=== PATIENT | male | born 1945 | race Hispanic/Latino ===

== ENCOUNTER 2016-08-07 22:04 | Inpatient (IN) | payer MEDICARE ==
[2016-08-07 22:18] VITALS: BMI 27.5
--- NOTE | 2016-08-07 22:35 | ED PDOC ---
Arrival/HPI - General Chief Complaint: Fever Time Seen by Provider: 08/07/16 22:23 Historian: Patient - History of Present Illness Narrative History of Present Illness (Text): 08/07/16 22:31 Moustapha Jurado is a 70 year old male, whose past medical history includes lung cancer, BPH, recent prostatic biopsy yesterday, COPD, and depression, who presents to the Emergency department complaining of fever and chills this evening. Patient states he has been urinarting small amounts at a time. Patient denies any chest pain, shortness of breath, cough, abdominal pain, nausea, vomiting, diarrhea, back pain, neck pain, headache, dizziness, or any other complaints. Time/Duration: Other (this evening) Symptom Onset: Gradual Symptom Course: Unchanged Activities at Onset: Light Modifying Factors (Text): none Context: Home Past Medical History - Provider Review Nursing Documentation Reviewed: Yes - Infectious Disease Hx of Infectious Diseases: None - Cardiac Hx Pacemaker: No - Pulmonary Hx Lung Cancer: Yes - Neurological Hx Paralysis: No - HEENT Hx Cataracts: Yes (Forming left eye) - Hematological/Oncological Hx Blood Transfusions: No Hx Blood Transfusion Reaction: No - Musculoskeletal/Rheumatological Hx Musculoskeletal Disorders: No - Gastrointestinal Hx Gastroesophageal Reflux: Yes Hx Vomiting: Yes - Genitourinary/Gynecological Hx Prostate Problems: Yes Hx Sexually Transmitted Diseases: No - Psychiatric Hx Anxiety: Yes Hx Depression: Yes Hx Substance Use: Yes - Surgical History Other/Comment: Lung biopsy. "removal of upper right lobe of lung". Prostate biopsy - Anesthesia Hx Anesthesia: Yes Hx Anesthesia Reactions: No Hx Malignant Hyperthermia: No - Suicidal Assessment Feels Threatened In Home Enviroment: No Family/Social History - Physician Review Nursing Documentation Reviewed: Yes Family/Social History: No Known Family HX Smoking Status: Unknown If Ever Smoked Hx Alcohol Use: Yes Hx Substance Use: Yes Allergies/Home Meds Allergies/Adverse Reactions: Allergies Sulfa (Sulfonamide Antibiotics) Allergy (Intermediate, Verified 03/27/16 09:47) RASH Review of Systems - Physician Review All systems were reviewed & negative as marked: Yes - Review of Systems Constitutional: Fevers, Other (+chills) Eyes: Normal ENT: Normal Respiratory: Normal. absent: SOB, Cough Cardiovascular: Normal. absent: Chest Pain Gastrointestinal: Normal. absent: Abdominal Pain, Diarrhea, Nausea, Vomiting Genitourinary Male: Urinary Output Changes (+urinating small amounts) Musculoskeletal: Normal. absent: Back Pain, Neck Pain Skin: Normal. absent: Rash Neurological: Normal. absent: Headache, Dizziness Endocrine: Normal Hemo/Lymphatic: Normal Psychiatric: Normal Physical Exam Vital Signs Reviewed: Yes Vital Signs Temp Pulse Resp BP Pulse Ox 08/08/16 02:12 135 H 123/68 08/08/16 01:53 99.6 F 136 H 16 123/68 95 08/08/16 01:45 155 H 140/72 08/08/16 00:28 102.2 F H 08/07/16 22:23 100.8 F H 123 H 20 162/87 H 95 Temperature: Febrile Blood Pressure: Hypertensive Pulse: Tachycardic Respiratory Rate: Normal Appearance: Positive for: Well-Appearing, Non-Toxic, Comfortable Pain Distress: None Mental Status: Positive for: Alert and Oriented X 3 - Systems Exam Head: Present: Atraumatic, Normocephalic Pupils: Present: PERRL Extroacular Muscles: Present: EOMI Conjunctiva: Present: Normal Mouth: Present: Moist Mucous Membranes Neck: Present: Normal Range of Motion Respiratory/Chest: Present: Clear to Auscultation, Good Air Exchange. No: Respiratory Distress, Accessory Muscle Use Cardiovascular: Present: Normal S1, S2, Tachycardic. No: Murmurs Abdomen: Present: Normal Bowel Sounds. No: Tenderness, Distention, Peritoneal Signs Upper Extremity: Present: Normal Inspection. No: Cyanosis, Edema Lower Extremity: Present: Normal Inspection. No: Edema Neurological: Present: GCS=15, CN II-XII Intact, Speech Normal Skin: Present: Warm, Dry, Normal Color. No: Rashes Psychiatric: Present: Alert, Oriented x 3, Normal Insight, Normal Concentration Medical Decision Making ED Course and Treatment: 08/07/16 22:31 Impression: 70 year old male complaining of fever and chills tonight. Plan: -- EKG -- Chest X-ray -- Labs, VBG, blood cultures -- Urinalysis, urine cultures -- IV fluids -- Tylenol -- Reassess and disposition Prior Visits: Notes and results from previous visits were reviewed. Progress Notes: Reviewed EKG, sinus tachycardia at 126 bpm. Occasional PVC. Non-specific ST/T wave changes. 08/07/16 23:45 Reviewed radiology, Chest X-ray shows no active disease. 08/08/16 00:[address] Braden, who is aware and agrees with plan. Accepts pt in to his service. Requests consult with Dr. Barrett. 08/08/16 02:[address] Walters, administrative staff supervisor, who is aware and agrees with plan. States pt can be admitted to Telemetry. resident hall director notified. Pt will be admitted to Telemetry for sepsis under Dr. Braden's service. - Critical Care Critical Care Minutes: 30 minutes - Lab Interpretations Lab Results: 08/07/16 22:31 08/07/16 22:31 Lab Results 08/08/16 02:20: pO2 188 H, VBG pH 7.45 H, VBG pCO2 33.0 L, VBG HCO3 22.9, VBG Total CO2 23.9, VBG O2 Sat (Calc) 100.1 H, VBG Base Excess -0.4 L, VBG Potassium 3.1 L, Sodium 137.0, Chloride 113.0 H, Glucose 129 H, Lactate 0.9, FiO2 21.0, Venous Blood Potassium 3.1 L 08/07/16 22:31: WBC 15.0 H D, RBC 4.24, Hgb 13.4 L, Hct 37.9 L, MCV 89.4, MCH 31.6, MCHC 35.4, RDW 12.3, Plt Count 230, MPV 8.5, Gran % 94.4 H, Lymph % (Auto ) 4.6 L, Edgar % (Auto) 0.7 L, Eos % (Auto) 0.2 L, Baso % (Auto) 0.1, Gran # 14.16 H, Lymph # 0.7 L, Edgar # 0.1, Eos # 0.0, Baso # 0.01, PT 10.9, INR 1.01, APTT 23.1 L, pO2 67 H, VBG pH 7.42, VBG pCO2 40.0, VBG HCO3 25.9, VBG Total CO2 27.1, VBG O2 Sat (Calc) 97.5 H, VBG Base Excess 1.3, VBG Potassium 4.0, Sodium 135.0, Chloride 106.0, Glucose 129 H, Lactate 1.5, FiO2 21.0, Potassium 3.9, Carbon Dioxide 24, Anion Gap 14, BUN 20, Creatinine 0.9, Est GFR ( Amer) > 60, Est GFR (Non-Af Amer) > 60, Random Glucose 123 H, Calcium 9.1, Phosphorus 2.5, Magnesium 1.7, Total Bilirubin 0.6, AST 25, ALT 32, Alkaline Phosphatase 78 , Total Protein 7.6, Albumin 3.8, Globulin 3.8, Albumin/Globulin Ratio 1.0 L, Venous Blood Potassium 4.0, Urine Color Yellow, Urine Appearance Slight-cloudy, Urine pH 6.0, Ur Specific [place] 1.020, Urine Protein 30 H, Urine Glucose (UA) Negative, Urine Ketones Negative, Urine Blood Large H, Urine Nitrate Negative, Urine Bilirubin Negative, Urine Urobilinogen 0.2, Ur Leukocyte Esterase Small H , Urine RBC 10 - 15, Urine WBC 10 - 15, Ur Epithelial Cells 0 - 2, Urine Bacteria Mod I have reviewed the lab results: Yes - RAD Interpretation Radiology Orders: 08/07/16 22:32 CHEST PORTABLE [RAD] Stat Still Operator Gin: ED Physician - EKG Interpretation Interpreted by ED Physician: Yes Type: 12 lead EKG - Medication Orders Current Medication Orders: Sodium Chloride (Sodium Chloride 0.9%) 1,000 mls @ 150 mls/hr IV .Q6H40M [facility] Last Admin: 08/07/16 23:20 Dose: 150 MLS/HR eMAR Start Stop Document 08/07/16 23:20 EKEOO (Rec: 08/07/16 23:20 EKEOO [id number]) Intravenous Solution Start Date 08/07/16 Start Time 23:20 Sodium Chloride (Sodium Chloride 0.9%) 1,000 mls @ 100 mls/hr IV .Q10H STA Stop: 08/08/16 12:52 Discontinued Medications Acetaminophen (Tylenol 325mg Tab) 650 mg PO STAT STA Stop: 08/07/16 22:34 Last Admin: 08/08/16 00:28 Dose: 650 MG MAR Pain/Vitals Document 08/08/16 00:28 EKEOO (Rec: 08/08/16 00:28 EKEOO [id number]) Pain Reassessment Is This A Pain ReAssessment? No Sleep Is patient sleeping during reassessment? No Presence of Pain Presence of Pain No Vitals Temperature (97.6 F-99.6 F) 102.2 F Temperature Source Oral Cefepime HCl (Maxipime 2gm) 100 mls @ 100 mls/hr IVPB STAT STA PRN Reason: Protocol Stop: 08/08/16 00:48 Last Admin: 08/08/16 01:08 Dose: 100 MLS/HR eMAR Start Stop Document 08/08/16 01:08 EKEOO (Rec: 08/08/16 01:09 EKEOO [id number]) Intravenous Solution Start Date 08/08/16 Start Time 01:09 Sodium Chloride (Sodium Chloride 0.9%) 1,000 mls @ 1,000 mls/hr IV .Q1H ONE Stop: 08/08/16 00:48 Last Admin: 08/08/16 01:09 Dose: 1,000 MLS/HR eMAR Start Stop Document 08/08/16 01:09 EKEOO (Rec: 08/08/16 01:09 EKEOO [id number]) Intravenous Solution Start Date 08/08/16 Start Time 01:09 Sodium Chloride (Sodium Chloride 0.9%) 1,000 mls @ 999 mls/hr IV .Q1H1M STA Stop: 08/08/16 02:04 Last Admin: 08/08/16 01:45 Dose: 999 MLS/HR eMAR Start Stop Document 08/08/16 01:45 EKEOO (Rec: 08/08/16 01:45 EKEOO [id number]) Intravenous Solution Start Date 08/08/16 Start Time 01:45 Sodium Chloride (Sodium Chloride 0.9%) 1,000 mls @ 999 mls/hr IV .Q1H1M STA Stop: 08/08/16 02:32 Last Admin: 08/08/16 02:39 Dose: 999 MLS/HR eMAR Start Stop Document 08/08/16 02:39 EKEOO (Rec: 08/08/16 02:39 EKEOO [id number]) Intravenous Solution Start Date 08/08/16 Start Time 02:39 Ibuprofen (Motrin Tab) Confirm Administered Dose 600 mg .ROUTE .STK-MED ONE Stop: 08/08/16 00:27 Last Admin: 08/08/16 00:30 Dose: MAR Pain/Vitals Document 08/08/16 00:30 EKEOO (Rec: 08/08/16 00:30 EKEOO [id number]) Pain Reassessment Is This A Pain ReAssessment? No Metoprolol Tartrate (Lopressor) 5 mg IVP STAT STA Stop: 08/08/16 01:33 Last Admin: 08/08/16 01:45 Dose: 5 MG MAR Pulse and Blood Pressure Document 08/08/16 01:45 EKEOO (Rec: 08/08/16 01:45 EKEOO [id number]) Pulse Pulse Rate (60-90 beats/min) 155 Blood Pressure Blood Pressure (100/60-150/90 mm Hg) 140/72 IVP Administration Document 08/08/16 01:45 EKEOO (Rec: 08/08/16 01:45 EKEOO [id number]) Charges for Administration # of IVP Administrations 1 Metoprolol Tartrate (Lopressor) 5 mg IVP STAT STA Stop: 08/08/16 02:10 Last Admin: 08/08/16 02:12 Dose: 5 MG MAR Pulse and Blood Pressure Document 08/08/16 02:12 EKEOO (Rec: 08/08/16 02:12 EKEOO [id number]) Pulse Pulse Rate (60-90 beats/min) 135 Blood Pressure Blood Pressure (100/60-150/90 mm Hg) 123/68 IVP Administration Document 08/08/16 02:12 EKEOO (Rec: 08/08/16 02:12 EKEOO [id number]) Charges for Administration # of IVP Administrations 1 - Scribe Statement The provider has reviewed the documentation as recorded by the [place] Provider Attestation: All medical record entries made by the Scribzeb were at my direction and personally dictated by me. I have reviewed the chart and agree that the record accurately reflects my personal performance of the history, physical exam, medical decision making, and the department course for this patient. I have also personally directed, reviewed, and agree with the discharge instructions and disposition. Disposition/Present on Arrival - Present on Arrival Any Indicators Present on Arrival: No History of DVT/PE: No History of Uncontrolled Diabetes: No Urinary Catheter: No History of Decub. Ulcer: No History Surgical Site Infection Following: None - Disposition Have Diagnosis and Disposition been Completed?: Yes Diagnosis: Sepsis Disposition: HOSPITALIZED Disposition Time: 02:57 Patient Plan: Admission Patient Problems: Current Active Problems Problem Status Diagnosed Sepsis Acute Condition: STABLE Discharge Instructions (ExitCare): Sepsis (ED) Referrals: Avi Braden MD [Primary Care Provider] - Follow up with primary
[2016-08-07] MEDS ORDERED: Sodium Chloride 0.9% 1,000 ML IV SCH (22:45)
[2016-08-07 23:15] LABS: VENOUS BLOOD GAS BASE EXCESS 1.3 mmol/L (0.0-2.0); VENOUS BLOOD PH 7.42 (7.32-7.43)
[2016-08-07 23:17] LABS: URINE BILIRUBIN NEGATIVE (NEGATIVE); URINE BLOOD LARGE (NEGATIVE); URINE GLUCOSE (UA) NEGATIVE (NEGATIVE); URINE KETONE NEGATIVE (NEGATIVE); URINE LEUKOCYTE ESTERASE SMALL Leu/uL (NEGATIVE); URINE PROTEIN 30 mg/dL (<30 mg/dL); URINE UROBILINOGEN 0.2 E.U./dL (<1 E.U./dL)
[2016-08-07 23:23] LABS: ALKALINE PHOSPHATASE 78 U/L (38-133); ALT/SGPT 32 U/L (7-56); AST/SGOT 25 U/L (15-59); BASO # 0.01 K/mm3 (0.0-2.0); BASO % 0.1 % (0.0-3.0); BILIRUBIN,TOTAL 0.6 mg/dL (0.2-1.3); BLOOD UREA NITROGEN 20 mg/dL (7-21); CALCIUM 9.1 mg/dL (8.4-10.5); CARBON DIOXIDE 24 mmol/L (21-33); CHLORIDE 101 mmol/L (98-107); EOS % 0.2 % (1.5-5.0); GFR AFRICAN-AMERICAN > 60; GLUCOSE,RANDOM 123 mg/dL (70-110); GRAN # 14.16 (1.4-6.5); GRAN % 94.4 % (50.0-68.0); HEMATOCRIT 37.9 % (42.0-52.0); LYMPH # 0.7 (1.2-3.4); LYMPH % 4.6 % (22.0-35.0); MAGNESIUM 1.7 mg/dL (1.7-2.2); MEAN CELL VOLUME 89.4 fL (80.0-105.0); MEAN CORPUSCULAR HEMOGLOBIN 31.6 pg (25.0-35.0); MEAN CORPUSCULAR HGB CONC 35.4 g/dl (31.0-37.0); MEAN PLATELET VOLUME 8.5 fl (7.0-11.0); MONO # 0.1 (0.1-0.6); MONO % 0.7 % (1.0-6.0); PHOSPHOROUS 2.5 mg/dL (2.5-4.5); PLATELET COUNT 230 10^3/uL (120.0-450.0); POTASSIUM 3.9 mmol/L (3.6-5.0); RED CELL DISTRIBUTION WIDTH 12.3 % (11.5-14.5); SODIUM 135 mmol/L (132-148); TOTAL PROTEIN 7.6 g/dL (5.8-8.3)
[2016-08-07 23:28] LABS: URINE APPEARANCE SLIGHT-CLOUDY (CLEAR); URINE COLOR YELLOW (YELLOW)
[2016-08-07 23:31] LABS: INR 1.01 (0.93-1.08); PARTIAL THROMBOPLASTIN TIME 23.1 Seconds (23.7-30.8)
[2016-08-07 23:41] LABS: URINE BACTERIA MOD (NEG); URINE EPITHELIAL CELLS 0 - 2 /hpf (0-5)
[2016-08-07] MEDS ORDERED: Sodium Chloride 0.9% 1,000 ML IV ONE (23:49)
[2016-08-07] MEDS ORDERED: Cefepime IV 2 gm in NS 100 ML IVPB STA (23:49)
[2016-08-08 00:20] LABS: ADD MANUAL DIFF? NO
[2016-08-08] MEDS ORDERED: Sodium Chloride 0.9% 1,000 ML IV STA ×3 (01:04→02:53)
[2016-08-08] MEDS ORDERED: Metoprolol 1 mg/ml Inj IVP STA ×3 (01:32→20:08)
[2016-08-08 02:36] LABS: VENOUS BLOOD GAS BASE EXCESS -0.4 mmol/L (0.0-2.0); VENOUS BLOOD PH 7.45 (7.32-7.43)
[2016-08-08] MEDS ORDERED: Vancomycin 1gm in NS 250ml 250 ML IVPB STA (03:03)
--- NOTE | 2016-08-08 03:08 | CP.PCM.CON ---
History of Present Illness - History of Present Illness History of Present Illness: Reason for ICU Consult: Sepsis HPI: 70 y/o male with a PMHx BPH, Depression, mood disorder, Lung Ca s/p R upper lobe resection 02/2016 presents to the ED today after experiencing the sudden onset of fever and chills earlier this evening. Patient reports feeling well today until a few hours ago when he began feeling hot and then having the chills and experiencing a shaking sensation along with some lower abdominal discomfort which resolved spontaneously. He underwent a Prostate biopsy 2 days prior (08/05/16) done by Dr. Barrett (Urology). He did not feel any symptoms or discomfort from the time of the biopsy up until a few hours ago. He also reports briefly having nausea, which has since resolved as well. He denies any complaints of headache, chest pains, shortness of breath, palpitations, dizziness, light headedness, vomiting or diarrhea. He denies dysuria but does admit to having increased urinary frequency. He also reports taking antibiotics prescribed to him after his procedure (Cefpodoxime 100mg po q12). PMHx: BPH Depression Lung Ca s/p resection of his right upper lobe in February of 2016 history of polysubstance abuse > 20yrs ago Allergies: Sulfa Fam Hx: reviewed and noncontributory Soc Hx: prior history of tobacco use 1 ppd (quit over 20yrs ago); prior history of polysubstance and alcohol use, which he quit >30yrs ago Meds: Klonopin 0.5mg po bid Flomax 0.4mg po daily Protonix 40mg po daily Paxil 20mg po daily Remeron 15mg po daily Cefpodoxime 100mg po q12 Levocetirizine for allergies Review of Systems - Review of Systems Review of Systems: As per HPI otherwise negative for a 12 point ROS Past Patient History - Infectious Disease Hx of Infectious Diseases: None - Past Social History Smoking Status: Unknown If Ever Smoked - CARDIAC Hx Pacemaker: No - PULMONARY Hx Lung Cancer: Yes - NEUROLOGICAL Hx Paralysis: No - HEENT Hx Cataracts: Yes (Forming left eye) - HEMATOLOGICAL/ONCOLOGICAL Hx Blood Transfusions: No Hx Blood Transfusion Reaction: No - MUSCULOSKELETAL/RHEUMATOLOGICAL Hx Musculoskeletal Disorders: No - GASTROINTESTINAL Hx Gastroesophageal Reflux: Yes Hx Vomiting: Yes - GENITOURINARY/GYNECOLOGICAL Hx Prostate Problems: Yes Hx Sexually Transmitted Disorders: No - PSYCHIATRIC Hx Anxiety: Yes Hx Depression: Yes Hx Substance Use: Yes - SURGICAL HISTORY Other/Comment: Lung biopsy. "removal of upper right lobe of lung". Prostate biopsy - ANESTHESIA Hx Anesthesia: Yes Hx Anesthesia Reactions: No Hx Malignant Hyperthermia: No Meds Allergies/Adverse Reactions: Allergies Allergy/AdvReac Type Severity Reaction Status Date / Time Sulfa (Sulfonamide Allergy Intermediate RASH Verified 03/27/16 09:47 Antibiotics) - Medications Medications: Current Medications Sodium Chloride (Sodium Chloride 0.9%) 1,000 mls @ 150 mls/hr IV .Q6H40M [facility] Last Admin: 08/07/16 23:20 Dose: 150 mls/hr Sodium Chloride (Sodium Chloride 0.9%) 1,000 mls @ 999 mls/hr IV .Q1H1M STA Stop: 08/08/16 02:04 Last Admin: 08/08/16 01:45 Dose: 999 mls/hr Sodium Chloride (Sodium Chloride 0.9%) 1,000 mls @ 999 mls/hr IV .Q1H1M STA Stop: 08/08/16 02:32 Physical Exam - Constitutional Appears: Non-toxic - Head Exam Head Exam: ATRAUMATIC, NORMOCEPHALIC - Eye Exam Eye Exam: Normal appearance - ENT Exam ENT Exam: Mucous Membranes Dry - Neck Exam Neck exam: Positive for: Full Rom, Normal Inspection - Respiratory Exam Respiratory Exam: Clear to Auscultation Bilateral, NORMAL BREATHING PATTERN. absent: Rales, Rhonchi, Wheezes - Cardiovascular Exam Cardiovascular Exam: Tachycardia, +S1, +S2 - GI/Abdominal Exam GI & Abdominal Exam: Normal Bowel Sounds, Soft. absent: Guarding, Rebound, Tenderness - Rectal Exam Rectal Exam: Deferred - Extremities Exam Extremities exam: Positive for: normal inspection - Neurological Exam Neurological exam: Alert, Oriented x3 - Psychiatric Exam Psychiatric exam: Normal Affect, Normal Mood - Skin Skin Exam: Dry, Intact, Warm Results - Vital Signs Recent Vital Signs: Last Vital Signs Temp 99.6 F 08/08/16 01:53 Pulse 136 H 08/08/16 01:53 Resp 16 08/08/16 01:53 BP 123/68 08/08/16 01:53 Pulse Ox 95 08/08/16 01:53 - Labs Result Diagrams: 08/07/16 22:31 08/07/16 22:31 Labs: Laboratory Results - last 24 hr 08/07/16 22:31 WBC 15.0 H D RBC 4.24 Hgb 13.4 L Hct 37.9 L MCV 89.4 MCH 31.6 MCHC 35.4 RDW 12.3 Plt Count 230 MPV 8.5 Gran % 94.4 H Lymph % (Auto) 4.6 L [place] % (Auto) 0.7 L Eos % (Auto) 0.2 L Baso % (Auto) 0.1 Gran # 14.16 H Lymph # 0.7 L [place] # 0.1 Eos # 0.0 Baso # 0.01 PT 10.9 INR 1.01 APTT 23.1 L pO2 67 H VBG pH 7.42 VBG pCO2 40.0 VBG HCO3 25.9 VBG Total CO2 27.1 VBG O2 Sat (Calc) 97.5 H VBG Base Excess 1.3 VBG Potassium 4.0 Sodium 135 Chloride 101 Glucose 129 H Lactate 1.5 FiO2 21.0 Potassium 3.9 Carbon Dioxide 24 Anion Gap 14 BUN 20 Creatinine 0.9 Est GFR ( Amer) > 60 Est GFR (Non-Af Amer) > 60 Random Glucose 123 H Calcium 9.1 Phosphorus 2.5 Magnesium 1.7 Total Bilirubin 0.6 AST 25 ALT 32 Alkaline Phosphatase 78 Total Protein 7.6 Albumin 3.8 Globulin 3.8 Albumin/Globulin Ratio 1.0 L Venous Blood Potassium 4.0 Urine Color Yellow Urine Appearance Slight-cloudy Urine pH 6.0 Ur Specific [place] 1.020 Urine Protein 30 H Urine Glucose (UA) Negative Urine Ketones Negative Urine Blood Large H Urine Nitrate Negative Urine Bilirubin Negative Urine Urobilinogen 0.2 Ur Leukocyte Esterase Small H Urine RBC 10 - 15 Urine WBC 10 - 15 Ur Epithelial Cells 0 - 2 Urine Bacteria Mod - EKG Data EKG Interpreted by: Myself Rate: Tachycardia (ST @ 126 bpm; no st elevations or depressions noted) Assessment & Plan - Assessment and Plan (Free Text) Assessment: 70 y/o male with a PMHx as listed above comes to the ED with the complaint of sudden onset fever, chills and nausea 2 days after having a prostate biopsy. He is currently being treated for sepsis and maintaining adequate hemodynamics in terms of having a good blood pressure however he is also displaying sinus tachycardia as high as 150bpm. I will continue to treat him with another 2 liters of IVF bolus along with broadened antibiotic coverage to include Vancomycin and IV lopressor to attempt to decrease his heart rate to under 130bpm. After he has received this treatment, he will be re-assess to determine whether or not he requires placement in the ICU vs Telemetry for further care and treatment of what is likely Sepsis with bacteremia. Plan: Patient was treated with another liter of IVF along with Metoprolol 5mg IV x 2 with a reduction in heart rate from the 150's to the 120's; he states feeling well and is making a good amount of urine indicating adequate perfusion. He also had repeat VBG's done in the ED which show a decrease in his lactate to less than 1; At this time he is hemodynamically improved and does not require admission to the ICU for aggressive care and monitoring. He should however be admitted to a monitored telemetry bed to continue to monitor his tachycardia until resolution. Case discussed with Dr. Stewart in the ED
[2016-08-08 07:19] LABS: HEMATOCRIT 36.9 % (42.0-52.0); MEAN CELL VOLUME 90.4 fL (80.0-105.0); MEAN CORPUSCULAR HEMOGLOBIN 31.4 pg (25.0-35.0); MEAN CORPUSCULAR HGB CONC 34.7 g/dl (31.0-37.0); MEAN PLATELET VOLUME 8.6 fl (7.0-11.0); RED CELL DISTRIBUTION WIDTH 12.5 % (11.5-14.5); WHITE BLOOD COUNT 19.6 10^3/ul (4.5-11.0)
--- NOTE | 2016-08-08 08:10 | RAD ---
PROCEDURE: CHEST RADIOGRAPH, 1 VIEW HISTORY: Sepsis Patient COMPARISON: None available. FINDINGS: LUNGS: Clear. PLEURA: No pneumothorax or pleural fluid seen. CARDIOVASCULAR: Normal. OSSEOUS STRUCTURES: No significant abnormalities. VISUALIZED UPPER ABDOMEN: Normal. OTHER FINDINGS: None. IMPRESSION: No active disease.
[2016-08-08] MEDS ORDERED: Cefepime IV 2 gm in NS 100 ML IVPB SCH (10:00)
--- NOTE | 2016-08-08 11:21 | HP ---
HISTORY OF PRESENT ILLNESS: The patient is a 70-year-old white male with history of BPH, possible pr ostate cancer status post prostate biopsy by Dr. Barrett. The patient 2 days later developed fever, chi lls, difficulty urinating, came to the Emergency Room where he was found to have an elevated white co unt, temperature to 103, and urinary incontinence. The patient also was found to have bacteria, pyur ia, and hematuria. The patient was started on IV antibiotics in the Emergency Room. He also was tac hycardic and slightly hypotensive, was evaluated by the hospitalist for a possible admission to the [facility]. However, the patient stabilized with fluids and antibiotics, and it was decided he would be tra nsferred to the floor. REVIEW OF SYSTEMS: Is positive only for the inability to urinate, abdominal discomfort, lightheadedn ess, tachycardia, rapid pulse, palpitations, fever, and chills. The patient denies any chest pain, c ough, hemoptysis, sputum production, headache, diarrhea, or vomiting. SOCIAL HISTORY: The patient is a nonsmoker, nondrinker. Symptoms started approximately 48 hours prior to admission. FAMILY HISTORY: Noncontributory. PHYSICAL EXAMINATION: GENERAL: Shows a well-developed, well-nourished white male in bed complaining of some abdominal disc omfort, nausea, and loss of appetite. He has a Allen catheter. VITAL SIGNS: Show a temperature of 99 this morning, pulse of 130, blood pressure 100/66. LABORATORY DATA: White count is 19,600 with a left shift. Now BUN and creatinine are normal. Sugar is normal. ____ H and H are within normal limits. CHEST: Clear to auscultation and percussion. HEART: Sinus tachycardia. ABDOMEN: Benign. Some mild mid epigastric tenderness. There is no CVA tenderness. EXTREMITIES: Without cyanosis, clubbing, or edema. NEUROLOGIC: Grossly intact. IMPRESSION: A 70-year-old white male presenting with status post prostate biopsy, presenting with fe arely, chills, sepsis, elevated white count 19,600 ____ bacteriuria. Rule out urosepsis. Avi Braden MD cc: [phone] TT: 08/08/2016 11:20:35 jn
[2016-08-08] MEDS: Vancomycin 1gm in NS 250ml 250 ML IVPB SCH ×2 (11:32→22:05)
--- NOTE | 2016-08-08 13:28 | CARD ---
APPROVED REPORT EKG Measurement Heart [id number] <Conclusion> Sinus tachycardia with occasional premature ventricular complexes Possible Left atrial enlargement Left axis deviation Abnormal ECG
[2016-08-08] MEDS ORDERED: Sodium Chloride 0.9% 1,000 ML IV SCH (13:30)
--- NOTE | 2016-08-08 14:17 | CON ---
DATE: 08/08/2016 This is a 70-year-old gentleman with history of BPH, who presented with fever, chills, sweats, dizziness, malaise, and fatigue. He also had difficulty urinating. He was found to have bacteriuria, pyuria and fever up to 103. Provided that the patient had recent prostate biopsy, concern for severe sepsis from gram-negative bacteremia was made and patient started on fluid resuscitation. Antibiotics were given. Septic workup initiated. Overnight, ICU consult was called. However, patient was hemodynamically relatively stable despite mild hypertension and tachycardia. The patient was admitted to telemetry. PAST MEDICAL HISTORY: BPH. SOCIAL HISTORY: No alcohol or illicit drug abuse. No tobacco smoking. FAMILY HISTORY: Noncontributory. Symptoms started approximately 2 days prior to admission to [facility]. REVIEW OF SYSTEMS: Review of 12 organ systems, other than mentioned in history of present illness, is negative. No chest pain, no cough, no hemoptysis, no headache, no diarrhea. MEDICATIONS AT HOME: Klonopin, Flomax, Protonix, Paxil, Remeron. ALLERGIES: SULFA DRUGS. PHYSICAL EXAMINATION: VITAL SIGNS: Blood pressure 152/76, heart rate 96, oxygen saturation 96% on room air, temperature 99.9, T-max 101.1 from continuing education specialist shift. HEAD AND NECK: Atraumatic. LUNGS: Clear to auscultation bilaterally. HEART: Regular rate and rhythm. S1, S2 normal. ABDOMEN: Soft, nontender, nondistended. Bowel sounds present. MUSCULOSKELETAL: Trace bilateral pedal and ankle edema. NEUROLOGIC: The patient moves all extremities spontaneously. SKIN: Moist. PSYCHIATRIC: The patient is alert and oriented x 3. He is able to maintain conversation. He is not confused and he is fully oriented. LABORATORIES: WBC 19.6, hemoglobin 12.8, platelet count 119. Sodium 135, potassium 3.9, chloride 101, carbon dioxide 24, BUN 20, creatinine 0.9, glucose 123, calcium 9.1, AST 25, ALT 32. VBG, pH 7.45. Lactic acid 0.9. Urine is positive for leukocyte esterase and negative for nitrites, WBC 10-15 and moderate amount of bacteria in the urine. Chest x-ray revealed no active pulmonary disease. ASSESSMENT AND PLAN: This is a 70-year-old gentleman with severe sepsis with concern for gram-negative bacteremia after prostate biopsy. The patient was fluid resuscitated with resolution of his tachycardia. Antibiotics were started. Septic workup initiated. I will recommend to follow that up with ID service on board. We will call for ID consult. Procalcitonin level was ordered as well. At present time, patient is hemodynamically and respiratory villalpando stable. He is able to protect his airways. He is alert and oriented x 3. I agree with continued monitor setting disposition and telemetry appeared to be appropriate. Please call us back if clinical situation deteriorates including, but not limited to, hemodynamic instability, hypotension, severe tachycardia, etc. We will recommend to continue to target euvolemia, euglycemia , normothermia and oxygen saturation more than 90%. Would continue with deep venous thrombosis and gastrointestinal prophylaxis. ccm time 40 min Quoc Simental MD cc: [id number] TT: 08/08/2016 14:16:33 Confirmation # [id number] Dictation # [id number] MTDD
[2016-08-08] MEDS: Meropenem 1g/NS 100mL IVPB 100 ML IVPB SCH ×2 (14:18→21:05)
[2016-08-08] MEDS: Sodium Chloride 0.9% 1,000 ML IV SCH (18:32)
--- NOTE | 2016-08-08 20:07 | CP.PCM.PN ---
Subjective - Date & Time of Evaluation Date of Evaluation: 08/08/16 Time of Evaluation: 20:04 - Subjective Subjective: Patient was seen for elevated heart rate.143/min. 70 year old white male , admitted for fever,chills, dizziness,sweating , fatigue follwing a prostate biopsy has possible urosepsis. 136/84 100.1*F pulse ox 96% 2L Complains of palpitation on & off in the past. Has PMH of BPH,Lung cancer, recent prostate biopsy,depression, polysubstance abuse. Ex smoker,has family history of heart disease. Received tylenol for temp about 2 hours ago. Denies chest pain, sob,nausea ,sweating. Objective - Vital Signs/Intake and Output Vital Signs (last 24 hours): Temp Pulse Resp BP Pulse Ox 102.7 F H 105 H 20 175/79 H 98 08/08/16 18:33 08/08/16 18:00 08/08/16 17:04 08/08/16 17:04 08/08/16 17:04 - Medications Medications: Current Medications Acetaminophen (Tylenol 325mg Tab) 650 mg PO Q6H PRN PRN Reason: Fever >100.4 F Last Admin: 08/08/16 18:33 Dose: 650 mg Amlodipine Besylate (Norvasc) 5 mg PO DAILY [facility] Vancomycin HCl (Vancomycin 1gm) 250 mls @ 167 mls/hr IVPB Q12H [facility] PRN Reason: Protocol Last Admin: 08/08/16 11:32 Dose: 167 mls/hr Meropenem 1g/NS 100mL IVPB (Meropenem 1g/Ns 100ml Ivpb) 100 mls @ 100 mls/hr IVPB Q8 [facility] PRN Reason: Protocol Stop: 08/15/16 14:01 Last Admin: 08/08/16 14:18 Dose: 100 mls/hr Sodium Chloride (Sodium Chloride 0.9%) 1,000 mls @ 125 mls/hr IV .Q8H [facility]OVANA Last Admin: 08/08/16 18:32 Dose: 125 mls/hr Mirtazapine (Remeron) 15 mg PO HS [facility] Ondansetron HCl (Zofran Inj) 4 mg IVP Q6H PRN PRN Reason: Nausea/Vomiting Last Admin: 08/08/16 18:33 Dose: 4 mg Pantoprazole Sodium (Protonix Ec Tab) 20 mg PO 0730 [facility] Paroxetine HCl (Paxil) 20 mg PO HS [facility] Tamsulosin HCl (Flomax) 0.4 mg PO DAILY [facility] Last Admin: 08/08/16 09:44 Dose: 0.4 mg - Labs Labs: 08/08/16 06:25 PT 10.9 Seconds (9.9-11.8) 08/07/16 22:31 INR 1.01 (0.93-1.08) 08/07/16 22:31 APTT 23.1 Seconds (23.7-30.8) L 08/07/16 22:31 - Constitutional Appears: Well, No Acute Distress - Head Exam Head Exam: ATRAUMATIC, NORMAL INSPECTION, NORMOCEPHALIC - Eye Exam Eye Exam: Normal appearance - ENT Exam ENT Exam: Normal External Ear Exam - Neck Exam Neck Exam: Normal Inspection - Respiratory Exam Respiratory Exam: Clear to Ausculation Bilateral, NORMAL BREATHING PATTERN - Cardiovascular Exam Cardiovascular Exam: Tachycardia, REGULAR RHYTHM, +S1 (Normal ), +S2 (Normal.). absent: JVD, Murmur - GI/Abdominal Exam GI & Abdominal Exam: Normal Bowel Sounds - Rectal Exam Rectal Exam: Deferred - Extremities Exam Extremities Exam: Normal Inspection. absent: Tenderness - Back Exam Back Exam: NORMAL INSPECTION - Neurological Exam Neurological Exam: Alert, Oriented x3 - Psychiatric Exam Psychiatric exam: Normal Affect, Normal Mood - Skin Skin Exam: Normal Color Assessment and Plan - Assessment and Plan (Free Text) Assessment: Sepsis. Sinus tachycardia. Overweight UTI? BPH S/P Prostate biopsy. Family history of heart disease. Ex smoker. Plan: EKG STAT----------->Sinus tachycardia. CBC,BMP,mag,phos,trop,TSH. Lopressor 5 mg IV STAT. Motrin 800 mg PO STAT + Mylanta 30 CC PO STAT. Continue present management. Will order D-Dimer if rate is not in control, because of Hx of Lung cancer.
[2016-08-08 20:40] LABS: BASO # 0.01 K/mm3 (0.0-2.0); BASO % 0.1 % (0.0-3.0); GRAN # 10.04 (1.4-6.5); GRAN % 93.7 % (50.0-68.0); HEMATOCRIT 34.7 % (42.0-52.0); LYMPH # 0.4 (1.2-3.4); LYMPH % 3.3 % (22.0-35.0); MEAN CELL VOLUME 88.7 fL (80.0-105.0); MEAN CORPUSCULAR HEMOGLOBIN 30.9 pg (25.0-35.0); MEAN CORPUSCULAR HGB CONC 34.9 g/dl (31.0-37.0); MEAN PLATELET VOLUME 8.7 fl (7.0-11.0); MONO # 0.3 (0.1-0.6); MONO % 2.9 % (1.0-6.0); PLATELET COUNT 161 10^3/uL (120.0-450.0); RED CELL DISTRIBUTION WIDTH 12.5 % (11.5-14.5); WHITE BLOOD COUNT 10.7 10^3/ul (4.5-11.0)
[2016-08-08 20:53] LABS: MAGNESIUM 1.8 mg/dL (1.7-2.2); PHOSPHOROUS 1.8 mg/dL (2.5-4.5)
[2016-08-08 21:20] LABS: TROPONIN I 0.31 ng/mL
[2016-08-08] MEDS ORDERED: Sodium Phosphate 15 MMOLE in Dextrose 5% In Water 250 ML IVPB ONE (21:29)
[2016-08-08] MEDS ORDERED: Aspirin 325 mg EC Tablets PO STA (21:30)
[2016-08-08] MEDS: Enoxaparin 100 mg Syringe SC SCH (22:02)
[2016-08-08 23:03] LABS: ADD MANUAL DIFF? NO
[2016-08-09] MEDS: Meropenem 1g/NS 100mL IVPB 100 ML IVPB SCH ×3 (05:00→22:00)
[2016-08-09] MEDS: Pantoprazole 20 mg EC Tab PO SCH (07:57)
--- NOTE | 2016-08-09 09:33 | PN ---
DATE: 08/09/2016 A 70-year-old white male admitted to the hospital after a transrectal prostate biopsy, developed a fe arely and chills, and inability to urinate. The patient came to the hospital with some spiking fevers as high as 102 with white counts as high as 19,000. The patient has been on IV antibiotics. Blood c ultures so far are negative. Urine culture showed gram-negative rods. The patient eventually on vancomycin and meropenem. VITAL SIGNS: He is afebrile today. His white count dropped from 19,000-10,700. The patient this mo rning has a temperature of 99.9. Heart rate has dropped to 83 from 130. He was rehydrated. He still is nauseous and taking some Zofran p.r.n., but starting to tolerate ____ small amounts of food. He also has a Allen catheter indwelling with some mild hematuria and bacteri uria. Vital signs, otherwise, are stable. PLAN: Is to continue IV antibiotics and diuretics and Zofran as needed. Avi Braden MD cc: [id number] TT: 08/09/2016 09:32:49 Confirmation # [id number] Dictation # [id number] rosanna
[2016-08-09] MEDS: Magnesium Oxide 400 mg Tab UD PO SCH ×2 (09:42→18:06)
[2016-08-09] MEDS: Enoxaparin 100 mg Syringe SC SCH ×2 (09:42→22:01)
[2016-08-09] MEDS: Sodium Chloride 0.9% 1,000 ML IV SCH ×2 (09:43→21:30)
--- NOTE | 2016-08-09 10:17 | CARD ---
APPROVED REPORT EKG Measurement Heart [id number] <Conclusion> consider Junctional tachycardia Left anterior fascicular block Abnormal ECG
[2016-08-09] MEDS: Vancomycin 1gm in NS 250ml 250 ML IVPB SCH (11:00)
--- NOTE | 2016-08-09 12:37 | CARD ---
APPROVED REPORT EKG Measurement Heart [id number] <Conclusion> Normal sinus rhythm Left axis deviation
[2016-08-09] MEDS: Alum-Mag Hydrox-Simethicone Susp (30 mL) PO PRN (13:42)
--- NOTE | 2016-08-09 18:24 | CP.PCM.CON ---
History of Present Illness - History of Present Illness History of Present Illness: 70 year old male with PMH of lung cancer S/P right upper lobe resection in 2015, depression, BPH, history of polysubstance abuse had a prostate biopsy done about 3 days ago. After the biopsy, he was feeling well until yesterday when he started having shaking chills and fever associated with generalized weakness, malaise. He denies headache or dizziness, no chest pain, no SOB, no cough or rhinorrhea, no diarrhea. He complains of increased urinary frequency. He also denies nausaea or vomiting, no chest pain, no flank pain, no muscle or joint aches, no sore throat, no blurring of vision. Blood and urine cx are now showing gram negative bacilli. Infectious Diseases consult is requested to further evaluate and manage. Review of Systems - Review of Systems All systems: reviewed and no additional remarkable complaints except (as per HPI ) Past Patient History - Infectious Disease Hx of Infectious Diseases: None - Past Social History Smoking Status: Former Smoker - CARDIAC Hx Pacemaker: No - PULMONARY Hx Tuberculosis: No - NEUROLOGICAL HX Cerebrovascular Accident: No Hx Seizures: No - HEENT Hx Cataracts: Yes (Forming left eye) - HEMATOLOGICAL/ONCOLOGICAL Hx Cancer: Yes Hx Human Immunodeficiency Virus (HIV): No - MUSCULOSKELETAL/RHEUMATOLOGICAL Hx Falls: No - GASTROINTESTINAL Hx Gastroesophageal Reflux: Yes - GENITOURINARY/GYNECOLOGICAL Hx Prostate Problems: Yes Hx Sexually Transmitted Disorders: No - PSYCHIATRIC Hx Anxiety: Yes Hx Depression: Yes Hx Substance Use: No - SURGICAL HISTORY Other/Comment: Lung biopsy. "removal of upper right lobe of lung". Prostate biopsy - ANESTHESIA Hx Anesthesia: Yes Hx Anesthesia Reactions: No Hx Malignant Hyperthermia: No Meds Allergies/Adverse Reactions: Allergies Allergy/AdvReac Type Severity Reaction Status Date / Time Sulfa (Sulfonamide Allergy Intermediate RASH Verified 03/27/16 09:47 Antibiotics) - Medications Medications: Current Medications Vancomycin HCl (Vancomycin 1gm) 250 mls @ 167 mls/hr IVPB Q12H [facility] PRN Reason: Protocol Last Admin: 08/08/16 11:32 Dose: 167 mls/hr Sodium Chloride (Sodium Chloride 0.9%) 1,000 mls @ 100 mls/hr IV .Q10H [facility] Meropenem 1g/NS 100mL IVPB (Meropenem 1g/Ns 100ml Ivpb) 100 mls @ 100 mls/hr IVPB Q8 [facility] PRN Reason: Protocol Stop: 08/15/16 14:01 Mirtazapine (Remeron) 15 mg PO HS [facility] Ondansetron HCl (Zofran Inj) 4 mg IVP Q6H PRN PRN Reason: Nausea/Vomiting Last Admin: 08/08/16 11:32 Dose: 4 mg Pantoprazole Sodium (Protonix Ec Tab) 20 mg PO 0730 [facility] Paroxetine HCl (Paxil) 20 mg PO HS [facility] Tamsulosin HCl (Flomax) 0.4 mg PO DAILY [facility] Last Admin: 08/08/16 09:44 Dose: 0.4 mg Physical Exam - Constitutional Appears: Other (feels weak) - Head Exam Head Exam: NORMAL INSPECTION - Neck Exam Neck exam: Negative for: Lymphadenopathy, Meningismus - Respiratory Exam Respiratory Exam: Decreased Breath Sounds - Cardiovascular Exam Cardiovascular Exam: +S1, +S2 - GI/Abdominal Exam GI & Abdominal Exam: Soft. absent: Tenderness Results - Vital Signs Recent Vital Signs: Last Vital Signs Temp 101 F H 08/08/16 12:38 Pulse 91 H 08/08/16 12:00 Resp 20 08/08/16 12:00 BP 155/87 H 08/08/16 12:00 Pulse Ox 95 08/08/16 05:59 - Labs Result Diagrams: 08/08/16 20:15 08/07/16 22:31 Labs: Laboratory Results - last 24 hr 08/08/16 06:25 WBC 19.6 H D RBC 4.08 Hgb 12.8 L Hct 36.9 L MCV 90.4 MCH 31.4 MCHC 34.7 RDW 12.5 Plt Count 190 MPV 8.6 Assessment & Plan - Assessment and Plan (Free Text) Plan: Assessment Sepsis secondary to gram negative bacilli bacteremia secondary to urinary tract infection in a patient who just had a prostate biopsy 2 days prior to presentation for this admission lung cancer S/P right upper lobe resection in 2015 depression BPH history of polysubstance abuse Plan started patient on Meropenem pending identification and sensitivities of the gram negative bacilli in the blood and urine; will d/c Vancomycin (which we started yesterday prior to the culture findings) Will follow fever curve and monitor clinical response
--- NOTE | 2016-08-09 19:31 | CON ---
DATE: 08/09/2016 CHIEF COMPLAINT: Fever and chills. HISTORY OF PRESENT ILLNESS: This is a 70-year-old male who was seen in [facility] ([facility] The patient underwent a prostate ultrasound and biopsy approximately 3 days ago. Two days after the biop sy, he was feeling well until suddenly he developed fever, chills and not feeling well. He denies an y nausea or vomiting. He began having some dysuria as well along with some urinary frequency. He fe lt he was unable to pass his water well and he presented to the Emergency Room. In the Emergency Clary m, the patient was found to be febrile. He had an elevated WBC count and he was admitted for likely urosepsis. The patient has been receiving intravenous antibiotics. His urine and blood cultures are positive for gram-negative rods. He is currently feeling better and reports no further fever or chi lls. Currently, a Allen catheter is in place, as he was having difficulty voiding. PAST MEDICAL HISTORY: Significant for elevated PSA, BPH, history of a lung biopsy, anxiety, reflux a nd hypertension. MEDICATIONS: Currently include Flomax, Ecotrin, Lopressor, Lovenox, Maalox, meropenem, Norvasc, Paxi l, Plavix, Protonix, Remeron, vancomycin, Tylenol and Zofran. ALLERGIES: SULFA. FAMILY HISTORY: Noncontributory. SOCIAL HISTORY: Reports no smoking or ETOH use. REVIEW OF SYSTEMS: A 12-point review of systems was obtained, positive for fever and chills. Positi ve for dysuria, frequency and urgency. Positive for malaise and weakness. Other systems are negativ e. PHYSICAL EXAMINATION: GENERAL: The patient is awake, alert and answering questions. He is in no acute distress. VITAL SIGNS: He is afebrile. He did have a fever of 102.7 on the . Today at noon temperature w as 97.1, pulse 72, BP 112/75, respirations 20. NECK: Supple. There is no adenopathy. CHEST: Reveals normal inspiratory effort. CARDIAC: Showed positive S1, S2. There is no peripheral edema. ABDOMEN: Soft, nontender, nondistended. There is no hepatosplenomegaly. There is no costovertebral angle tenderness. There is no obvious mass. GENITOURINARY: Phallus is normal. There is a Allen catheter in place, which is draining clear color ed urine. There is some trace bloody urine in the bag. Scrotum is normal. Testes are bilaterally d escended, nontender, no masses. Epididymides are normal. There is no tenderness or swelling noted. EXTREMITIES: There is no cyanosis or edema. LABORATORY DATA: WBC count was up to 19.6 yesterday; this then came down last night to 10.7. GFR gr eater than 60. Troponin is elevated, but has been coming down. Microbiology: Urine culture and blo od cultures positive for gram-negative rods. RADIOLOGIC EXAMINATION: No pertinent urologic films were done. There was a chest x-ray done on admi ssion, which showed no active disease. IMPRESSION AND PLAN: This is a 70-year-old male who underwent a prostate biopsy. The patient appear s to have urosepsis. He appears to be responding to intravenous fluids and IV antibiotics. The plan for now will be to continue IV antibiotics until the culture and sensitivity results are known. The patient should be continued with the Allen catheter at this point. It will be removed in a few days ' time for a voiding trial once the swelling in his prostate has resolved. He should be maintained o n tamsulosin once daily as he has taken this at home. We will continue to follow him with you and sandrita vallecillo further recommendations as needed. Dontae Torres MD cc: [id number] TT: 08/09/2016 19:31:06 Confirmation # [id number] Dictation # [id number] jennifer
[2016-08-10] MEDS: Pantoprazole 20 mg EC Tab PO SCH (08:40)
[2016-08-10] MEDS: Enoxaparin 100 mg Syringe SC SCH ×2 (09:47→22:01)
[2016-08-10] MEDS: Magnesium Oxide 400 mg Tab UD PO SCH ×2 (09:49→18:41)
--- NOTE | 2016-08-10 10:17 | PN ---
DATE: 08/10/2016 The patient's urine cultures came back, which showed an E. coli, interestingly sensitive to Rocephin. The patient was on cefpodoxime - a third generation cephalosporin, and it was sensitive to it at th e time that he got septic. He also had received 120 mg of gentamicin intravenously prior to the proc edure, and the bacteria also were sensitive to that as well. He had a Allen placed when he came in the Emergency Room. I am going to discontinue it. He currentl y is on Flomax, and we will check a bladder scan to make sure he is voiding. His white count is now down to 10,000. VITAL SIGNS: His temperature is 100.1, blood pressure 123/57, respirations 20. We will discuss with ID length of treatment. Because of the positive blood cultures, he probably víctor l need IV antibiotics for a longer period of time. Nahum Barrett MD cc: [id number] TT: 08/10/2016 10:17:22 Confirmation # [id number] Dictation # [id number] rosanna
[2016-08-10] MEDS: Meropenem 1g/NS 100mL IVPB 100 ML IVPB SCH ×2 (14:34→22:01)
[2016-08-10] MEDS: Sodium Chloride 0.9% 1,000 ML IV SCH (14:37)
--- NOTE | 2016-08-10 16:36 | PN ---
DATE: 08/10/2016 A 70-year-old white male admitted to the hospital after a transrectal prostate biopsy. Prostate can cer was found. Developed urosepsis with E. coli in the blood and in the urine. The patient has been on vancomycin and meropenem, doing well. Vital signs are better. The patient ____. The Allen cath eter is removed. He is urinating better. He is afebrile. Vital signs are stable. White count has dropped from as high as 19,000 to 10,000. The patient is afebrile today, 98.3. A 12 point review of systems unremarkable. IMPRESSION: Continue intravenous antibiotics for treatment of urosepsis. Avi Braden MD cc: [id number] TT: 08/10/2016 16:36:11 Confirmation # [id number] Dictation # [id number] sn
--- NOTE | 2016-08-10 17:55 | CP.PCM.PN ---
Subjective - Date & Time of Evaluation Date of Evaluation: 08/10/16 Time of Evaluation: 13:10 - Subjective Subjective: Comfortable in bed, not in distress, still had low grade fevers overnight but afebrile this morning, feeling a little better today. Objective - Vital Signs/Intake and Output Vital Signs (last 24 hours): Temp Pulse Resp BP Pulse Ox 98.3 F 84 19 114/62 95 08/10/16 12:00 08/10/16 14:00 08/10/16 12:00 08/10/16 12:00 08/09/16 18:39 Intake and Output: 08/10/16 08/10/16 06:59 18:59 Intake Total 300 Output Total 1400 1725 Balance -1100 -1725 - Medications Medications: Current Medications Acetaminophen (Tylenol 325mg Tab) 650 mg PO Q6H PRN PRN Reason: Fever >100.4 F Last Admin: 08/09/16 18:04 Dose: 650 mg Al Hydrox/Mg Hydrox/Simethicone (Maalox Plus 30 Ml) 30 ml PO Q4 PRN PRN Reason: Indigestion / Heartburn Last Admin: 08/09/16 13:42 Dose: 30 ml Amlodipine Besylate (Norvasc) 5 mg PO DAILY [facility] Last Admin: 08/10/16 09:49 Dose: 5 mg Aspirin (Ecotrin) 81 mg PO DAILY [facility] Last Admin: 08/10/16 09:48 Dose: 81 mg Clopidogrel Bisulfate (Plavix) 75 mg PO DAILY [facility] Last Admin: 08/10/16 09:48 Dose: 75 mg Enoxaparin Sodium (Lovenox) 100 mg SC Q12 [facility] PRN Reason: Protocol Last Admin: 08/10/16 09:47 Dose: 100 mg Meropenem 1g/NS 100mL IVPB (Meropenem 1g/Ns 100ml Ivpb) 100 mls @ 100 mls/hr IVPB Q8 [facility] PRN Reason: Protocol Stop: 08/15/16 14:01 Last Admin: 08/10/16 14:34 Dose: 100 mls/hr Sodium Chloride (Sodium Chloride 0.9%) 1,000 mls @ 125 mls/hr IV .Q8H [facility] Last Admin: 08/10/16 14:37 Dose: 125 mls/hr Magnesium Oxide (Mag-Ox) 400 mg PO BID [facility] Last Admin: 08/10/16 09:49 Dose: 400 mg Metoprolol Tartrate (Lopressor) 25 mg PO BID [facility] Last Admin: 08/10/16 09:50 Dose: 25 mg Mirtazapine (Remeron) 15 mg PO HS [facility] Last Admin: 08/09/16 22:01 Dose: 15 mg Ondansetron HCl (Zofran Inj) 4 mg IVP Q6H PRN PRN Reason: Nausea/Vomiting Last Admin: 08/09/16 05:00 Dose: 4 mg Pantoprazole Sodium (Protonix Ec Tab) 20 mg PO 0730 [facility] Last Admin: 08/10/16 08:40 Dose: 20 mg Paroxetine HCl (Paxil) 20 mg PO HS [facility] Last Admin: 08/09/16 22:01 Dose: 20 mg Tamsulosin HCl (Flomax) 0.4 mg PO DAILY [facility] Last Admin: 08/10/16 09:50 Dose: 0.4 mg - Labs Labs: 08/08/16 20:15 PT 10.9 Seconds (9.9-11.8) 08/07/16 22:31 INR 1.01 (0.93-1.08) 08/07/16 22:31 APTT 23.1 Seconds (23.7-30.8) L 08/07/16 22:31 - Constitutional Appears: Non-toxic, No Acute Distress - Head Exam Head Exam: NORMAL INSPECTION - ENT Exam ENT Exam: Mucous Membranes Moist - Neck Exam Neck Exam: absent: Lymphadenopathy, Meningismus - Respiratory Exam Respiratory Exam: Decreased Breath Sounds - Cardiovascular Exam Cardiovascular Exam: +S1, +S2 - GI/Abdominal Exam GI & Abdominal Exam: Soft. absent: Tenderness Assessment and Plan - Assessment and Plan (Free Text) Plan: Assessment Sepsis secondary to gram negative bacilli bacteremia secondary to urinary tract infection in a patient who just had a prostate biopsy 2 days prior to presentation for this admission lung cancer S/P right upper lobe resection in 2015 depression BPH history of polysubstance abuse Plan continue Meropenem day 2 pending identification and sensitivities of the gram negative bacilli in the blood and urine; Will continue to follow fever curve and monitor clinical response
[2016-08-11] MEDS: Meropenem 1g/NS 100mL IVPB 100 ML IVPB SCH (05:32)
[2016-08-11] MEDS: Pantoprazole 20 mg EC Tab PO SCH (08:12)
[2016-08-11] MEDS ORDERED: guaiFENesin DM 100 mg-10 mg/5 ml UD PO PRN (08:45)
[2016-08-11] MEDS: Magnesium Oxide 400 mg Tab UD PO SCH ×2 (09:01→18:19)
[2016-08-11] MEDS: Enoxaparin 100 mg Syringe SC SCH ×2 (09:04→22:09)
--- NOTE | 2016-08-11 10:22 | PN ---
DATE: 08/11/2016 A 70-year-old white male admitted with urosepsis, status post prostate biopsy for prostate cancer, pr esumed Escherichia coli sepsis urine and blood. The patient is doing well. He is afebrile. Vital s igns are stable. We are waiting for sensitivity on the blood cultures to see if there is at t his point. The patient is also complaining of somewhat of a congestion and cold. He will start some Robitussin. He is afebrile. His white count is down to 10,700. PHYSICAL EXAMINATION: Unchanged. Avi Braden MD cc: [id number] TT: 08/11/2016 10:21:41 Confirmation # [id number] Dictation # [id number] rustam
[2016-08-11] MEDS: cefTRIAXone 2 GM IN NS 2 GM/100 ML BAG IVPB SCH (12:26)
--- NOTE | 2016-08-11 18:51 | CP.PCM.PN ---
Subjective - Date & Time of Evaluation Date of Evaluation: 08/11/16 Time of Evaluation: 14:35 - Subjective Subjective: Comfortable in bed, not in distress, no fevers overnight. Objective - Vital Signs/Intake and Output Vital Signs (last 24 hours): Temp Pulse Resp BP Pulse Ox 97.9 F 69 21 139/77 95 08/11/16 11:33 08/11/16 18:19 08/11/16 11:33 08/11/16 18:19 08/11/16 05:59 Intake and Output: 08/11/16 08/11/16 06:59 18:59 Intake Total 3660 Output Total 3100 Balance 560 - Medications Medications: Current Medications Acetaminophen (Tylenol 325mg Tab) 650 mg PO Q6H PRN PRN Reason: Fever >100.4 F Last Admin: 08/09/16 18:04 Dose: 650 mg Al Hydrox/Mg Hydrox/Simethicone (Maalox Plus 30 Ml) 30 ml PO Q4 PRN PRN Reason: Indigestion / Heartburn Last Admin: 08/09/16 13:42 Dose: 30 ml Amlodipine Besylate (Norvasc) 5 mg PO DAILY [facility] Last Admin: 08/11/16 09:04 Dose: 5 mg Aspirin (Ecotrin) 81 mg PO DAILY [facility] Last Admin: 08/11/16 09:01 Dose: 81 mg Clopidogrel Bisulfate (Plavix) 75 mg PO DAILY [facility] Last Admin: 08/11/16 09:01 Dose: 75 mg Enoxaparin Sodium (Lovenox) 100 mg SC Q12 JOVANA PRN Reason: Protocol Last Admin: 08/11/16 09:04 Dose: 100 mg Guaifenesin/Dextromethorphan (Robitussin Dm) 5 ml PO Q4H PRN PRN Reason: Cough Last Admin: 08/11/16 09:01 Dose: 5 ml Sodium Chloride (Sodium Chloride 0.9%) 1,000 mls @ 125 mls/hr IV .Q8H [facility] Last Admin: 08/10/16 14:37 Dose: 125 mls/hr Ceftriaxone Sodium (Rocephin 2 Gm Ivpb) 2 gm in 100 mls @ 100 mls/hr IVPB DAILY [facility] PRN Reason: Protocol Stop: 08/21/16 10:16 Last Admin: 08/11/16 12:26 Dose: 100 mls/hr Magnesium Oxide (Mag-Ox) 400 mg PO BID [facility] Last Admin: 08/11/16 18:19 Dose: 400 mg Metoprolol Tartrate (Lopressor) 25 mg PO BID [facility] Last Admin: 08/11/16 18:19 Dose: 25 mg Mirtazapine (Remeron) 15 mg PO HS [facility] Last Admin: 08/10/16 22:01 Dose: 15 mg Ondansetron HCl (Zofran Inj) 4 mg IVP Q6H PRN PRN Reason: Nausea/Vomiting Last Admin: 08/09/16 05:00 Dose: 4 mg Pantoprazole Sodium (Protonix Ec Tab) 20 mg PO 0730 [facility] Last Admin: 08/11/16 08:12 Dose: 20 mg Paroxetine HCl (Paxil) 20 mg PO HS [facility] Last Admin: 08/10/16 22:01 Dose: 20 mg Tamsulosin HCl (Flomax) 0.4 mg PO DAILY [facility] Last Admin: 08/11/16 09:01 Dose: 0.4 mg - Labs Labs: 08/08/16 20:15 PT 10.9 Seconds (9.9-11.8) 08/07/16 22:31 INR 1.01 (0.93-1.08) 08/07/16 22:31 APTT 23.1 Seconds (23.7-30.8) L 08/07/16 22:31 - Constitutional Appears: Non-toxic, No Acute Distress - Head Exam Head Exam: NORMAL INSPECTION - ENT Exam ENT Exam: Mucous Membranes Moist - Neck Exam Neck Exam: absent: Lymphadenopathy, Meningismus - Respiratory Exam Respiratory Exam: Decreased Breath Sounds - Cardiovascular Exam Cardiovascular Exam: +S1, +S2 - GI/Abdominal Exam GI & Abdominal Exam: Soft. absent: Tenderness Assessment and Plan - Assessment and Plan (Free Text) Plan: Assessment Sepsis secondary to E. coli bacteremia secondary to urinary tract infection in a patient who just had a prostate biopsy 2 days prior to presentation for this admission lung cancer S/P right upper lobe resection in 2015 depression BPH history of polysubstance abuse Plan changed Meropenem to Rocephin (day 3 total antibiotics) to complete a 14 day course Will continue to follow clinically
[2016-08-12] MEDS: Pantoprazole 20 mg EC Tab PO SCH (08:32)
[2016-08-12] MEDS: cefTRIAXone 2 GM IN NS 2 GM/100 ML BAG IVPB SCH (09:30)
[2016-08-12] MEDS: Magnesium Oxide 400 mg Tab UD PO SCH ×2 (09:30→16:59)
[2016-08-12] MEDS: Enoxaparin 100 mg Syringe SC SCH ×2 (09:31→21:24)
--- NOTE | 2016-08-12 10:19 | PN ---
DATE: 08/12/2016 The patient was seen earlier this morning in room 260, bed 1. He was awake and alert, states that he is feeling much better. Overall, his fever is down and his symptoms have resolved. PHYSICAL EXAMINATION: VITAL SIGNS: Temperature is 98, blood pressure is 130/70, respiratory rate of 20, heart rate of 57. HEENT: Unremarkable. NECK: Supple. LUNGS: Have decreased breath sounds. HEART: Normal S1, S2. ABDOMEN: Soft, nontender, no rebound, no guarding, no masses. LABORATORY EXAMINATION: Reveals the white count is down to 10,700, hemoglobin of 12. Chemistries re veal the BUN of 20, creatinine of 0.9 and procalcitonin is less than 0.04. Troponin levels are noted . Urinalysis is noted. Microbiology reveals the patient has E. coli in the blood from 08/07 which is pansensitive, including sensitive to quinolones and Cipro and E. coli in the urine, also pansensitiv e, including sensitive to Cipro. The repeat blood cultures from 08/08 are negative. Currently, the p atient is on ceftriaxone. Dr. Braden's note is reviewed. The patient has had 3 EKGs, one on 08/07 , one on 08/08 and one on 08/09. The one on 08/09 has a QTC of 447. The one on 08/08, has a QTC of 456 and the one on 08/07 has a QTC of 434. ASSESSMENT AND PLAN: A 70-year-old male with sepsis secondary to Escherichia coli bacteremia with Es cherichia coli in the urine, status post prostate biopsy and a history of lung cancer, right upper lo be resection in 02/2016, history of depression, history of polysubstance abuse, currently on Rocephin day #4. May be able to switch to Cipro p.o. at 500 mg p.o. b.i.d. if urologist believes it is prost atitis. Will need at least 14 days. If there is prostatitis, would extend that treatment for a tota l of 21 days of therapy. Discussed the QTC interval with the patient this morning, cardiac event. W e will follow with you. Frank Nayak MD cc: [phone] TT: 08/12/2016 10:18:24 Confirmation # [id number] Dictation # [id number] tn
--- NOTE | 2016-08-12 12:48 | PN ---
DATE: 08/12/2016 The patient is 70-year-old patient of Dr. Braden, covering for him, seen and examined. His chart reviewed, and the patient was admitted with sepsis, source of UTI. He grew Escherichia coli in blood and the urine. So he is currently on IV antibiotic. ID input noted and appreciated. The patient n eeds to complete 10 days of IV antibiotics. PHYSICAL EXAMINATION: GENERAL: He is awake and alert, communicative, doing well. VITAL SIGNS: He is afebrile, pulse 63, respirations 20, blood pressure 134/75. LUNGS: Bilateral fair airflow. No rhonchi or crackle. HEART: S1, S2 audible. No murmur. ABDOMEN: Soft, nontender. No rebound, no guarding. NEUROLOGIC: The patient is awake and alert, communicative, ambulatory. He complains that once in a while he gets bleeding when he starts his urination, and that turns his u rine darker. Otherwise, he has no nausea, vomiting, no diarrhea. LABORATORY DATA: Troponin is 0.31. Followup is 0.15. EKG shows normal sinus rhythm. ASSESSMENT: 1. Urosepsis secondary to Escherichia coli. 2. Status post prostatic biopsy. 3. History of carcinoma lung, status post partial pneumonectomy. 4. History of right upper lung resection in 02/2016. 5. History of polysubstance abuse. PLAN: Currently, the patient is on Rocephin 2 grams daily. He is on aspirin 81 daily. He is on Rey max and metoprolol. Currently, he is on Lovenox. He is getting SCDs. The patient has positive trop onin. I will get cardiology evaluation, and also reach out to Dr. Barrett to reevaluate and determine i f further duration of antibiotic. Will also get input from cardiology. I will request Dr. Anand to evaluate the patient. The patient was started on Lovenox on the . ____. He was started empirically on Lovenox, but he never had CT workup done. Order for bilateral leg Doppler, get cardiology evaluation. If leg Doppl er is negative, we have to discontinue Lovenox. Porter Elliott MD cc: [phone] TT: 08/12/2016 12:48:07 Confirmation # [id number] Dictation # [id number] jn
--- NOTE | 2016-08-12 14:06 | US ---
HISTORY: Leg pain and swelling. Evaluate for DVT PHYSICIAN(S): Cruz Tejeda MD. TECHNIQUE: Duplex sonography and color-flow Doppler with graded compression were used to evaluate the deep venous systems of both lower extremities. FINDINGS: The visualized deep venous systems of both lower extremities are sonographically normal and compressible. Normal wave forms and augmentation are seen. There is no sonographic evidence for deep venous thrombosis in the visualized segments of both lower extremities. IMPRESSION: No sonographic evidence for deep venous thrombosis in the visualized segments of both lower extremities.
--- NOTE | 2016-08-12 17:37 | CON ---
DATE: 08/12/2016 The patient is in room 260, bed 1. REASON FOR CONSULTATION: Elevated troponin, urosepsis. HISTORY OF PRESENT ILLNESS: The patient is a 70-year-old male who has history of BPH, possible prostate malignancy, who developed fever, chills, difficulty urination. The patient found to have urosepsis; grew E. coli from urine as well as blood. The patient is on IV antibiotics. The patient also has bloody urine, and he states that still when he passes urine some blood comes out. The patient's Allen catheter has been removed. The patient had prostatic biopsy. The patient denies any chest pain, shortness of breath or palpitation. The patient's troponin has been found to be 0.31 and second one 0.15, so cardiology consult has been requested for elevated troponin. The patient is sitting in chair without any cardiac symptoms. He does not have any history of exertional chest pain in the past, and he did not have any chest pain while he is here. The patient is known to have anxiety disorder and mild COPD. PAST MEDICAL HISTORY: Positive for anxiety and mild COPD. He had a history of nasal polyp removal in the past and also has a lung malignancy and he had resection of the lungs in 02/2016. He was told he does not need any radiation or chemotherapy. PERSONAL HISTORY: He used to smoke 2-1/2 packs; stopped 22 years ago. He used to drink heavy and stopped 35 years ago. ALLERGIES: Denies any allergies. REVIEW OF SYSTEMS: All the systems were reviewed. Positive mentioned in the history, others were negative. MEDICATIONS: The patient's medication at home included Klonopin 0.5 b.i.d., Flomax 0.4 daily, Protonix 20 mg daily, Paxil 20 mg p.o. at bedtime, Remeron 15 mg p.o. at bedtime. PHYSICAL EXAMINATION: VITAL SIGNS: Blood pressure 135/82, respirations 21, pulse 67, temperature 98.2. HEAD: Normocephalic. EYES: Pupils normal. Conjunctivae slightly pale. NECK: JVP low. Carotid equal. THORAX: AP diameter normal. LUNGS: No significant rales. CARDIOVASCULAR: S1, S2. ABDOMEN: Soft. No tenderness, no organomegaly. EXTREMITIES: No clubbing, no cyanosis. LABORATORY DATA: Show WBC 10.7, hemoglobin 12.1, hematocrit 34.7, platelet 161. Sodium 135, potassium 3.9, BUN 20, creatinine 0.9. AST, ALT normal. Total protein and albumin normal. TSH 1.03. Troponin as mentioned before 0.31 on 08/08/2016 and 0.15 on 08/09/2016. EKG showed normal sinus rhythm, left axis deviation. Chest x-ray: No active disease. Urine and blood cultures showed E. coli. DIAGNOSES: Troponin elevation, rule out [id number] myocardial infarction ; status post prostatic biopsy; urosepsis, Escherichia coli from urine and blood cultures; history of right upper lung resection in 02/2016 for malignancy , history of polysubstance abuse, history of anxiety. PLAN: The patient is still being treated for sepsis. Also, he says he still passes blood with urine. The patient also has been undergoing sepsis treatment at present. On the other hand, patient is totally asymptomatic from cardiac point of view. So at this moment, option will be to treat him medically and once infectious disease clears him from sepsis point of view then we can do the cardiac catheterization. The patient has been started already on aspirin 81 mg daily, Flomax 0.4 daily, metoprolol 25 b.i.d. The patient also getting Lovenox 100 mg subQ q. 12 hours, amlodipine 5 mg daily, Paxil 20 mg at bedtime, Plavix 75 daily, Remeron 15 mg at bedtime, Rocephin 2 gram IV daily. So patient is already on Plavix, Lovenox, aspirin and metoprolol. We will discuss with infectious disease that from sepsis point of view when we can do catheterization and and then we will plan further. In the meantime, will continue present therapy. Selwyn Anand MD cc: [phone] TT: 08/12/2016 17:37:12 Confirmation # [id number] Dictation # [id number] mehrdad GRAY
--- NOTE | 2016-08-12 18:24 | PN ---
DATE: 08/12/2016 The patient is doing well on his antibiotics. He is voiding well. The urine has some mild hematuria . He will increase his water intake. He has no difficulties voiding, no suprapubic fullness. The p tamika as per ID is for him to have 10-14 days of IV antibiotics. The patient was told to follow up wit h us in the office when the path report is back. I will give him the results. Nahum Barrett MD cc: [id number] TT: 08/12/2016 18:23:37 Confirmation # [id number] Dictation # [id number] dn
[2016-08-13] MEDS: Alum-Mag Hydrox-Simethicone Susp (30 mL) PO PRN ×3 (00:18→21:46)
[2016-08-13 07:23] LABS: ADD MANUAL DIFF? NO
[2016-08-13 07:35] LABS: BASO # 0.01 K/mm3 (0.0-2.0); BASO % 0.2 % (0.0-3.0); EOS # 0.3 (0.0-0.7); EOS % 5.2 % (1.5-5.0); GRAN # 3.07 (1.4-6.5); HEMATOCRIT 35.6 % (42.0-52.0); LYMPH # 1.1 (1.2-3.4); LYMPH % 22.5 % (22.0-35.0); MEAN CELL VOLUME 88.6 fL (80.0-105.0); MEAN CORPUSCULAR HEMOGLOBIN 30.6 pg (25.0-35.0); MEAN CORPUSCULAR HGB CONC 34.6 g/dl (31.0-37.0); MONO # 0.4 (0.1-0.6); MONO % 8.1 % (1.0-6.0); PLATELET COUNT 237 10^3/uL (120.0-450.0); RED CELL DISTRIBUTION WIDTH 12.3 % (11.5-14.5); WHITE BLOOD COUNT 4.8 10^3/ul (4.5-11.0)
[2016-08-13 07:48] LABS: ALB/GLOB RATIO 0.9 (1.1-1.8); ALKALINE PHOSPHATASE 111 U/L (38-133); ALT/SGPT 92 U/L (7-56); AST/SGOT 88 U/L (15-59); BILIRUBIN,TOTAL 0.7 mg/dL (0.2-1.3); BLOOD UREA NITROGEN 12 mg/dL (7-21); CALCIUM 8.7 mg/dL (8.4-10.5); CARBON DIOXIDE 30 mmol/L (21-33); CHLORIDE 102 mmol/L (98-107); CHOLESTEROL 160 mg/dL (130-200); GFR AFRICAN-AMERICAN > 60; GLUCOSE,RANDOM 97 mg/dL (70-110); MAGNESIUM 2.2 mg/dL (1.7-2.2); PHOSPHOROUS 3.1 mg/dL (2.5-4.5); POTASSIUM 3.6 mmol/L (3.6-5.0); SODIUM 140 mmol/L (132-148); TOTAL PROTEIN 6.6 g/dL (5.8-8.3)
[2016-08-13 07:58] LABS: TROPONIN I 0.02 ng/mL
[2016-08-13] MEDS: Pantoprazole 20 mg EC Tab PO SCH (08:14)
--- NOTE | 2016-08-13 09:54 | PN ---
DATE: 08/13/2016 REASON FOR CONSULTATION AND FOLLOWUP: Elevated troponin, urosepsis, on IV antibiotic, hematuria. BRIEF CLINICAL HISTORY: A 70-year-old male with a past medical history significant for BPH, possible prostate malignancy who developed fever, chills, difficulty urination. The patient found to have ur osepsis, grew E. coli urine as well as in the blood, on IV antibiotic. Denies any chest pain, denies shortness of breath, denies any palpitation. Yesterday, troponin was sent, found to be 0.31, 0.15, so cardiology consult was called for elevated troponin. The patient is asymptomatic. He used to do 25 minutes of gym every other day, except last 3 weeks when the patient was admitted here and sick. Denies any chest pain, denies shortness of breath, denies any palpitation. Known to have anxiety dis order and COPD. Ex-smoker, quit 23 years ago. History of lung CA, malignancy, resected in 02/2016, history of COPD and he was told he does not need any radiation or chemo post resection of the lung. PHYSICAL EXAMINATION: VITAL SIGNS: Temperature afebrile, heart rate , blood pressure 121/66. HEENT: PERRLA. Extraocular muscles intact. NECK: Supple. No carotid bruits. No thyromegaly. CHEST: Clear to auscultation. HEART: S1, S2 regular. ABDOMEN: Soft. EXTREMITIES: Clubbing, cyanosis negative. BLOOD WORKUP: WBC 4.8, hemoglobin 12.3, hematocrit 35.3, platelet count 237. Chemistry shows sodium 140, potassium 3. , chloride 102, carbon dioxide 30, anion gap of 12, BUN 12, creatinine 0.7. T roponin 0.31, 0.15, now repeat is 0.02 this morning. IMPRESSION: Isolated 2 troponins positive, asymptomatic, not sure if secondary to hemodynamic instab ility of sepsis, underlying at one point patient was septic with a WBC of 19,000 on admission and uro sepsis, no definite history or documented history of coronary artery disease, very active lifestyle, but ex-smoker, history of lung cancer, resected, no chemo or radiation post resection, hematuria. RECOMMENDATION: The patient is already on aspirin and Plavix. We will get the lipid profile, get TS H, will get hemoglobin A1c and schedule cardiac catheterization, possibly on Tuesday. Discussed with the patient. Continue IV antibiotic. To rule out definite any coronary artery disease. The patient possibly may have prostate malignancy. Biopsy was done and will be followed with Dr. Barrett. Thank you, Dr. Elliott, for providing us the opportunity in taking care of the patient. So far, the duplex scan of the lower extremities is negative for deep venous thrombosis. The patient is already on Plavix since 22 and also metoprolol, aspirin and 100 mg subQ q. 12. We will change to 30 subQ fro m today for deep venous thrombosis prophylaxis. Thank you, Dr. Elliott, for providing us the opportunity in taking care of the patient. Selwyn Alberto MD cc: [id number] TT: 08/13/2016 08:43:26 Confirmation # [id number] Dictation # [id number] en 08/13/2016 08:53:21
[2016-08-13] MEDS: Magnesium Oxide 400 mg Tab UD PO SCH ×2 (10:24→17:12)
[2016-08-13] MEDS: Enoxaparin 30 mg Syringe SC SCH (10:24)
[2016-08-13] MEDS: cefTRIAXone 2 GM IN NS 2 GM/100 ML BAG IVPB SCH (10:25)
--- NOTE | 2016-08-13 11:07 | PN ---
DATE: 08/13/2016 The patient is in bed, in no acute distress, was seen earlier in [facility], bed 1. No fevers and chills. PHYSICAL EXAMINATION: VITAL SIGNS: Temperature is 98, blood pressure is 121/60, respiratory rate of 20, heart rate of 60. HEENT: Unremarkable. NECK: Supple. LUNGS: Have decreased breath sounds. HEART: Normal S1, S2. ABDOMEN: Soft, nontender. LABORATORY EXAMINATION: Reveals a white count of 4.8, hemoglobin of 12, platelets of 237. BUN of 12 , creatinine of 0.7. Procalcitonin 0.05. AST is changed from 25 to 88. ALT is changed up to 92 and it was 32. Alkaline phosphatase is still normal. Troponins are elevated x 2. Microbiology reveals E. coli in the blood and urine. Review of the medications reveals the patient to be on ceftriaxone. Dr. Alberto's note is reviewed. ASSESSMENT AND PLAN: A 70-year-old male with sepsis, secondary to Escherichia coli bacteremia and Es cherichia coli in the urine, status post prostate biopsy with a history of lung cancer, right upper l obe resection 02/2016, history of depression, history of polysubstance abuse. Currently on ceftriaxo ne day #5. May be able to switch to p.o. Cipro at 500 mg p.o. b.i.d. and treat with 14-21 days of p. o. Cipro. Will follow with you. Frank Nayak MD cc: 350 TT: 08/13/2016 11:07:19 Confirmation # [id number] Dictation # [id number] en
--- NOTE | 2016-08-13 13:20 | PN ---
DATE: 08/13/2016 The patient is a 70-year-old, seen and examined, lying in bed. He seems to be comfortable, complaini ng of having some blood in the urine. The patient was found to have positive troponin, has been on L ovenox. There is no evidence of pulmonary embolism or DVT and he does not have any cardiac symptoms. PHYSICAL EXAMINATION: GENERAL: He is awake and alert, communicative. No chest pain, no shortness of breath. VITAL SIGNS: He is afebrile, pulse 62, respirations 20, blood pressure 134/81. LUNGS: Bilateral fair airflow, no rhonchi or crackle. HEART: S1, S2 audible. ABDOMEN: Soft, nontender, no rebound, no guarding. NEUROLOGIC: The patient is awake and alert, communicative. Moves all extremities. EXTREMITIES: Bilateral +1 edema. LABORATORY EXAMINATION: WBCs 4.8, hemoglobin 12.3, hematocrit 35.6, platelets of 237. Chemistry: T kulwant's sodium 140, potassium 3.6, chloride 102, CO2 30, BUN 12, creatinine 0.7, blood sugar of 97. H is troponin on 08/09 was 0.15 and followup was 1.02. LFTs shows AST 88, ALT 92. Troponin 0.02. Bloo d culture on 08/07 positive for E. coli, repeat on 08/08 was negative. Bilateral leg Doppler is unrema rkable. ASSESSMENT: 1. Escherichia coli urosepsis. 2. Non-ST elevation myocardial infarction. 3. Hematuria. 4. Status post prostatic biopsy. 5. History of cancer of lung, status post partial pneumonectomy. 6. History of smoking and polysubstance abuse. PLAN: I will continue on aspirin, continue on Flomax. Klonopin as needed. We will continue on beta soo. We will discontinue his Lovenox that is 100 twice a day and change it to prophylactic, so that has been changed already by Dr. Alberto. He has been started on Plavix. That will be maintained. The patient is scheduled to have catheterization done on Tuesday. Porter Elliott MD cc: [phone] TT: 08/13/2016 13:20:36 Confirmation # [id number] Dictation # [id number] en
[2016-08-14] MEDS: Alum-Mag Hydrox-Simethicone Susp (30 mL) PO PRN (05:34)
[2016-08-14 07:11] LABS: TROPONIN I < 0.01 ng/mL
[2016-08-14] MEDS: Pantoprazole 20 mg EC Tab PO SCH (08:06)
[2016-08-14] MEDS: Magnesium Oxide 400 mg Tab UD PO SCH ×2 (09:21→17:38)
[2016-08-14] MEDS: Enoxaparin 30 mg Syringe SC SCH (09:21)
[2016-08-14] MEDS: cefTRIAXone 2 GM IN NS 2 GM/100 ML BAG IVPB SCH (09:22)
--- NOTE | 2016-08-14 11:46 | PN ---
DATE: 08/14/2016 REASON FOR CONSULTATION AND FOLLOWUP: Elevated troponin, urosepsis on IV antibiotic, emaciated, rule out [id number] myocardial infarction. BRIEF CLINICAL HISTORY: A 70-year-old male with past medical history significant for BPH, possible p rostate malignancy, who developed fever, chills, difficult urination, UTI urosepsis, grew E. coli in urine as well as in the blood, on IV antibiotic. Denies any chest pain, denies any shortness of cristina th, denies any palpitation. Troponin was sent. It was 0.31, then 0.15. Cardiac consult was called. Now, the troponin trended down. The patient denies any chest pain, shortness of breath, any palpit ation. The patient claims that he used to go for 25 ____ every other day, has no problem. Though leah ball was an ex-smoker, quit 23 years ago, history of lung CA, status post resection of the malignanc y 02/2016. No further chemo or radiation was given. History of COPD, but he denies any chest pain. PHYSICAL EXAMINATION: VITAL SIGNS: Temperature afebrile, heart rate 60, blood pressure 190/72. HEENT: PERRLA. Extraocular muscles intact. NECK: Supple. No carotid bruits. No thyromegaly. CHEST: Clear to auscultation. HEART: S1, S2 regular. ABDOMEN: Soft. EXTREMITIES: Clubbing and cyanosis negative. LABORATORY DATA: Blood workup as follows: WBC 4.8, hemoglobin 12.3, hematocrit 35.6, platelet count 237. Chemistry shows sodium 140, potassium 3.7, chloride 102, carbon dioxide 30, anion gap of 12, B UN 12, creatinine 0.7. Troponin 0.01 now. IMPRESSION: Possible ST segment myocardial infarction. On admission, troponin was positive on 08/08 . Now, the troponin trended down, could be secondary to hemodynamic instability versus related to un derlying coronary artery disease. Urosepsis, Escherichia coli, gram-negative blood and the urine. P rostrate possible malignancy, hyperlipidemia. RECOMMENDATION: We will start beta soo, aspirin, Plavix, start cholesterol medication. Cardiac catheterization on Tuesday. Continue DVT prophylaxis. We will follow with you. Thank you, Dr. Elliott, for providing the opportunity in taking care of the patient. We will also ad d atorvastatin and keep n.p.o. after midnight for possible cardiac catheterization and angioplasty on Tuesday. The risks, benefits, alternatives discussed with the patient. The patient agreed. We will proceed for cardiac catheterization. Selwyn Alberto MD cc: [phone] TT: 08/14/2016 11:44:54 Confirmation # [id number] Dictation # [id number] tn
--- NOTE | 2016-08-14 17:30 | PN ---
DATE: 08/14/2016 SUBJECTIVE: The patient is 70 years old, a patient Dr. Braden, seen and examined, lying in bed, c omfortable. No more blood in the urine since his Lovenox is reduced. No chest pain, no shortness of breath. PHYSICAL EXAMINATION: VITAL SIGNS: He is afebrile, pulse 70, respirations 18, blood pressure 127/70. LUNGS: Bilateral fair airflow, no rhonchi or crackle. HEART: S1, S2 audible. ABDOMEN: Soft, nontender, no rebound, no guarding. NEUROLOGIC: He is awake and alert, communicative, ambulatory. LABORATORY DATA: His LDH is 524. CPK is 44 and troponin is 0.01. ASSESSMENT AND PLAN: 1. Status post urosepsis with Escherichia coli urinary tract infection status post prostatic biopsy. 2. Status post Escherichia coli bacteremia. 3. Non-ST elevation myocardial infarction with positive troponin. 4. Hypertension. 5. History of carcinoma of the lung, status post partial laminectomy. PLAN: The patient was evaluated by assistance coordinator. He is scheduled to have cardiac catheterization do ne on Tuesday. Will continue him on current antibiotic after catheterization done, and he will be fin ishing his antibiotic so he can be discharged on Tuesday evening to Tuesday morning. Porter Elliott MD cc: [id number] TT: 08/14/2016 17:29:33 Confirmation # [id number] Dictation # [id number] dn
--- NOTE | 2016-08-14 18:38 | PN ---
DATE: 08/14/2016 The patient is in bed in no acute distress, nontoxic, no fevers. PHYSICAL EXAMINATION: VITAL SIGNS: Temperature of 98, blood pressure is 120/60, respiratory rate of 20, heart rate of 68. HEENT: Unremarkable. NECK: Supple. LUNGS: Have decreased breath sounds. HEART: Normal S1, S2. ABDOMEN: Soft. LABORATORY DATA: Reveals a white count of 4.8, hemoglobin of 12 and platelets of 237. Chemistries r eveal the BUN of 12, creatinine of 0.7. Procalcitonin is noted unremarkable at less than 0.05. Trop onin first 2 were elevated, the last 2 are normal. Microbiology is noted. The repeat cultures are n egative. Review of the orders reveals the patient to be on ceftriaxone. Dr. Elliott's note from today is note d. ASSESSMENT AND PLAN: This is a 70-year-old white male who is admitted with sepsis secondary to Esche richia coli bacteremia and Escherichia coli in the urine, status post prostate biopsy, history of bhargav g cancer, right upper lobe resection in 02/2016, history of depression, history of polysubstance abus e. Today is day #6 of ceftriaxone, may be able to switch to p.o. Cipro, and QTC interval is reviewed . May use p.o. Cipro 500 mg p.o. b.i.d. for a total of 14 days. The patient is scheduled for a card iac catheterization on Tuesday. We will continue ceftriaxone at this point and follow the patient rae sely with you. Frank Nayak MD cc: 350 TT: 08/14/2016 18:37:01 Confirmation # [id number] Dictation # [id number] jn
[2016-08-15] MEDS: Alum-Mag Hydrox-Simethicone Susp (30 mL) PO PRN (00:13)
[2016-08-15 07:15] LABS: TROPONIN I < 0.01 ng/mL
[2016-08-15] MEDS: Pantoprazole 20 mg EC Tab PO SCH (07:54)
[2016-08-15] MEDS: cefTRIAXone 2 GM IN NS 2 GM/100 ML BAG IVPB SCH (09:28)
[2016-08-15] MEDS: Enoxaparin 30 mg Syringe SC SCH (09:40)
[2016-08-15] MEDS: Magnesium Oxide 400 mg Tab UD PO SCH ×2 (09:41→17:08)
--- NOTE | 2016-08-15 10:29 | PN ---
DATE: 08/15/2016 REASON FOR CONSULTATION AND FOLLOWUP: Elevated troponin, possible [id number]-LE-pskugef myocardial infarcti on, urosepsis, on IV antibiotic, hematuria. BRIEF CLINICAL HISTORY: This is a 70-year-old male with a past medical history significant for BPH, urosepsis. Admitted, mild troponin positive, history of lung CA, malignancy, status post resection. The patient is scheduled for cardiac catheterization tomorrow. Denies any chest pain, shortness of breath, any palpitation. PHYSICAL EXAMINATION: VITAL SIGNS: Temperature afebrile, heart rate 71, blood pressure 120/70. HEENT: PERRLA. Extraocular muscles intact. NECK: Supple. No carotid bruits. No thyromegaly. CHEST: Clear to auscultation. HEART: S1, S2 regular. ABDOMEN: Soft. EXTREMITIES: Clubbing, cyanosis negative. WBC 4.8, hemoglobin 12.3, hematocrit 35.6, platelet count 237. Chemistry shows sodium 140, potassium 3.7, chloride 102, carbon dioxide 12. Troponin 0.01. IMPRESSION: Non-ST segment myocardial infarction, possible, troponin positive, urosepsis, urinary tr act infection, benign prostatic hypertrophy, rule out prostate malignancy, history of lung cancer, st atus post resection, gram-negative sepsis, bacteremia on admission. Repeat blood culture positive da lacey 08/08/2016, on IV antibiotic. RECOMMENDATION: Continue aspirin, continue Plavix. Cardiac catheterization tomorrow, possible angio plasty. Keep n.p.o. after midnight for possible angioplasty. Discussed with the patient. Risks, be nefits, alternatives discussed with the patient. The patient agreed. We will proceed for cardiac ca theterization tomorrow. We will repeat the blood workup in the morning. Thank you, Dr. Braden, for providing us the opportunity in taking care of the patient. Selwyn Alberto MD cc: [id number] TT: 08/15/2016 10:28:57 Confirmation # [id number] Dictation # [id number] en
--- NOTE | 2016-08-15 16:02 | PN ---
DATE: 08/15/2016 The patient is in bed in no acute distress. He was seen earlier this morning in room 260. He is sabine ke, alert and doing well. PHYSICAL EXAMINATION: VITAL SIGNS: Temperature is 98, blood pressure is 109/60, respiratory rate of 16. HEENT: Unremarkable. NECK: Supple. LUNGS: Have decreased breath sounds. HEART: Normal S1, S2. ABDOMEN: Soft, nontender. LABORATORY DATA: Reveals a white count of 4.8, hemoglobin of 12, platelets of 237. BUN of 12, creat inine of 0.7. Urinalysis is noted. Microbiology reveals E. coli in the blood, E. coli in the urine and pansensitive E. coli. Review of the orders reveals the patient to be on ceftriaxone. ASSESSMENT AND PLAN: This is a 70-year-old male who was admitted with sepsis secondary to [place] a coli bacteremia and Escherichia coli in the blood and urine, status post prostate biopsy. The uri ent had been on p.o. Vantin as outpatient, history of depression, history of polysubstance abuse, his tory of lung cancer, right upper lobe resection in 02/2016. Today is day #7 of ceftriaxone. s witch to p.o. Cipro 500 mg p.o. b.i.d. for a total of 14 days. The patient is scheduled for cardiac catheterization tomorrow. Dr. Alberto's note is reviewed. The patient IS ALLERGIC TO SULFA. We will f malu with you. Frank Nayak MD cc: 350 TT: 08/15/2016 16:01:51 Confirmation # [id number] Dictation # [id number] dn
--- NOTE | 2016-08-15 16:36 | PN ---
DATE: 08/15/2016 SUBJECTIVE: The patient has no complaints of any chest pain or shortness of breath, no headaches or dizziness. PHYSICAL EXAMINATION: VITAL SIGNS: Temperature is 97.7, pulse of 61, blood pressure 109/66, respiration is 18. GENERAL: The patient comfortable, in no acute distress. HEENT: Anicteric sclerae. Moist mucosa. NECK: No JVD or adenopathy. CARDIAC: S1/S2. No murmurs. No rubs. Regular. RESPIRATORY: Clear to auscultation bilaterally. No wheezes, rales, or rhonchi. Good air entry. ABDOMEN: Bowel sounds are positive, soft, nontender, and nondistended. EXTREMITIES: No edema. Has 1+ pulses. LABS: White count of 4.8, hemoglobin 12.3, creatinine 0.7. ASSESSMENT: 1. Sepsis secondary to Escherichia coli. 2. Urinary tract infection. 3. Non-ST elevation myocardial infarction. 4. Hypertension. 5. History of lung cancer. PLAN: The patient is currently comfortable, is on aspirin, is going to continue on Flomax for BPH. The patient is on Lipitor for dyslipidemia. He is on Norvasc for hypertension. He is on Rocephin fo r antibiotics. He is receiving Remeron. The patient is on Plavix. He is being followed by Dr. Alberto . He is going to go for cardiac cath tomorrow with possible angioplasty by Dr. Alberto. Jean Gilbert MD cc: [id number] TT: 08/15/2016 16:36:12 Confirmation # [id number] Dictation # [id number] an
[2016-08-16 05:37] VITALS: O2SAT 95
[2016-08-16 07:22] LABS: ADD MANUAL DIFF? NO
[2016-08-16 07:27] LABS: BASO # 0.02 K/mm3 (0.0-2.0); BASO % 0.3 % (0.0-3.0); EOS # 0.4 (0.0-0.7); EOS % 6.4 % (1.5-5.0); GRAN % 61.2 % (50.0-68.0); HEMATOCRIT 38.6 % (42.0-52.0); LYMPH # 1.2 (1.2-3.4); LYMPH % 20.1 % (22.0-35.0); MEAN CELL VOLUME 89.8 fL (80.0-105.0); MEAN CORPUSCULAR HEMOGLOBIN 30.5 pg (25.0-35.0); MEAN CORPUSCULAR HGB CONC 33.9 g/dl (31.0-37.0); MONO # 0.7 (0.1-0.6); PLATELET COUNT 271 10^3/uL (120.0-450.0); RED CELL DISTRIBUTION WIDTH 12.7 % (11.5-14.5); WHITE BLOOD COUNT 6.1 10^3/ul (4.5-11.0)
[2016-08-16 07:47] LABS: ALB/GLOB RATIO 0.9 (1.1-1.8); ALKALINE PHOSPHATASE 94 U/L (38-133); ALT/SGPT 104 U/L (7-56); AST/SGOT 65 U/L (15-59); BILIRUBIN,TOTAL 0.6 mg/dL (0.2-1.3); BLOOD UREA NITROGEN 16 mg/dL (7-21); CARBON DIOXIDE 29 mmol/L (21-33); CHLORIDE 103 mmol/L (98-107); GFR AFRICAN-AMERICAN > 60; GLUCOSE,RANDOM 102 mg/dL (70-110); MAGNESIUM 2.2 mg/dL (1.7-2.2); PHOSPHOROUS 3.7 mg/dL (2.5-4.5); POTASSIUM 4.3 mmol/L (3.6-5.0); SODIUM 138 mmol/L (132-148)
[2016-08-16] MEDS ORDERED: Lidocaine 2% Inj (20ml) ONE (08:13)
[2016-08-16] MEDS ORDERED: Nitroglycerin 50mg in D5W 50 MG/250 ML BOTTLE IV ONE (08:13)
[2016-08-16] MEDS ORDERED: Iohexol 350mgl/ml 50 ML ONE (08:27)
[2016-08-16] MEDS ORDERED: Midazolam 2 MG/2 ML VIAL ONE (08:52)
[2016-08-16] MEDS ORDERED: Bacitracin 500 Units/gm Oint Foilpak UD TOP ONE (09:35)
[2016-08-16] MEDS ORDERED: Sodium Chloride 0.9% 1,000 ML IV SCH (09:45)
--- NOTE | 2016-08-16 10:09 | PN ---
DATE: 08/16/2016 A 70-year-old white male admitted to the hospital after a prostate biopsy with urosepsis E. coli. Th e patient also had some epigastric chest discomfort with positive troponins. He was taken to the [facility] rgency Room, then taken to catheterization by Dr. Alberto today - was found to have nonobstructive coron darrell artery disease and no evidence of hypokinesis. No evidence of acute MO. The patient will be tra nsferred back. Continue with p.o. antibiotics. Will be able to be most likely discharged home later today after he recovers from his catheterization and to have 2 weeks of Cipro. ____ EXAMINATION: Unchanged. VITAL SIGNS: Stable. Avi Braden MD cc: 356 TT: 08/16/2016 10:08:56 Confirmation # [id number] Dictation # [id number] rosanna
--- NOTE | 2016-08-16 10:41 | PN ---
DATE: 08/16/2016 REASON FOR CONSULTATION AND FOLLOWUP: Elevated troponin, [id number] myocardial infarction, urose psis. BRIEF CLINICAL HISTORY: This is a 70-year-old male with past medical history significant for BPH, ur osepsis, admitted with a troponin positive, history of lung CA, malignancy, status post resection at [facility], left upper lobe. Because of a troponin positive and [id number] myocardial infar ction, patient underwent cardiac catheterization that revealed nonobstructive coronary artery disease limited only to mid to distal LAD 40-50% stenosis and diagonal-1 ostial 60% stenosis, but otherwise major epicardial RCA ____ essentially free of significant disease. LV function ejection fraction 45% . RECOMMENDATION: We will discontinue Plavix. Continue aspirin. Continue antibiotic. Continue metop rolol. Will get echo to assess LV function. Aggressive medical treatment. Discussed with the patie nt. Will discuss with Dr. Braden. Thank you, Dr. Braden, for providing the opportunity in taking care of this patient. After the TR band removal, will discontinue telemetry by 1:00. Continue medical treatment. Selwyn Alberto MD cc: 305 TT: 08/16/2016 10:00:35 Confirmation # [id number] Dictation # [id number] [email or web address]
[2016-08-16] MEDS: Magnesium Oxide 400 mg Tab UD PO SCH (11:38)
[2016-08-16] MEDS: Pantoprazole 20 mg EC Tab PO SCH (11:39)
[2016-08-16] MEDS: cefTRIAXone 2 GM IN NS 2 GM/100 ML BAG IVPB SCH (11:41)
[2016-08-16 13:11] VITALS: RESP 16; TEMP 98.8
[2016-08-16 15:54] VITALS: BP 118/64; PULSE 63
--- NOTE | 2016-08-16 16:14 | CARD ---
APPROVED REPORT Procedure(s) performed: Left Heart Catheterization HISTORY The patient is a 70 year-old male with a history of : chronic lung disease, tobacco history() : The patient is a former smoker , hypertension , dyslipidemia , Hx of Lung Ca S/p left Upper lobe resection at [facility], admitted with Urosepsis and NSTEMI. INDICATION The indication(s) include : non-STEMI . CASE TECHNIQUE The patient was brought electively to the Cardiac Catheterization Laboratory in a fasting state and was prepped and draped in a sterile manner. The left wrist was infiltrated with 2% Lidocaine subcutaneous anesthesia. A 6 Fr Glidesheath (Radial) sheath was inserted into the left radial artery without difficulty. Coronary angiography was performed using coronary diagnostic catheters. The left coronary system was accessed and visualized with a Diagnostic , catheter. The right coronary system was accessed and visualized with a Diagnostic , catheter. The left ventricle was accessed and visualized with a Pigtail catheter. Left ventricular/Aortic Valve gradient assessed on pullback. Left ventriculogram was performed in ARCOS projection. Closure device was deployed with a Fr TR Band (Large) without any complications. The patient tolerated the procedure well and there were no complications associated with the procedure. Vessel Analysis The patient's coronary anatomy is right dominant. The left main coronary artery is a large size vessel without significant stenosis. The left main trifurcates to the left anterior descending, circumflex, and ramus. The left anterior descending artery is a medium size vessel with diffuse calcification noted throughout this vessel and without significant stenosis. The first diagonal branch is a medium size vessel with diffuse calcification noted throughout this vessel and without significant stenosis. There is a 60% stenosis in the ostial segment. The second diagonal branch is a medium size vessel with diffuse calcification noted throughout this vessel and without significant stenosis. The circumflex artery is a medium size vessel with intimal irregularities. The first obtuse marginal branch is a medium size vessel with diffuse calcification noted throughout this vessel and without significant stenosis. The second obtuse marginal branch is a medium size vessel with diffuse calcification noted throughout this vessel and without significant stenosis. The ramus intermedius artery is a small size vessel with diffuse calcification noted throughout this vessel and without significant stenosis. The right coronary artery is a large size vessel with intimal irregularities and without significant stenosis. The right posterior descending artery is a medium size vessel with diffuse calcification noted throughout this vessel and without significant stenosis. Left Ventricle The left ventricle is Borderline enlarged in size with Borderline decreased contractility. Non-Ischemic cardiomyopathy. The left ventricular ejection fraction is estimated to be 45-50%. The left ventricular end diastolic pressure is 15 mmHg. apical hypokinesis There was no gradient across the aortic valve upon pullback. Conclusion Non Obstructive CAD limited to D1 60% stenosis Non ischemic Borderline CMP, EF-45-50%, EDP-15 Recommendations Aggressive Medical TherapyCardiac Risk Reduction Program CC; Dr. Paz
--- NOTE | 2016-08-17 08:10 | PN ---
DATE: 08/16/2016 The patient is in bed, was seen earlier today in 273, bed 3. He states he is doing well. No nausea and no vomiting. PHYSICAL EXAMINATION: VITAL SIGNS: Temperature is 98, blood pressure is 120/70, respiratory rate of 16. HEENT: Unremarkable. NECK: Supple. LUNGS: Have decreased breath sounds. HEART: Normal S1, S2. ABDOMEN: Soft, nontender. LABORATORY DATA: Reveals a white count of 6.1, hemoglobin of 13. Chemistries reveal the BUN of 16, creatinine of 0.8. The LFTs are noted, mildly elevated. The patient had a cardiac catheterization t kulwant, with no significant findings. Dr. Avi Braden's note is reviewed. ASSESSMENT AND PLAN: A 70-year-old male who was admitted with sepsis secondary to Escherichia coli b acteremia, Escherichia coli in the urine and blood with status post prostate biopsy. He had been on p.o. Vantin as an outpatient, history of depression, history of polysubstance abuse and history of lorna ng cancer and right upper lobe resection in 02/2016. Today is day #8 of ceftriaxone. May switch to p.o. Cipro. The QTc interval is noted and would use Cipro 500 mg p.o. b.i.d. for a total of 14 days and schedule for followup with PMD. The patient is status post cardiac catheterization. Of note, th e patient IS ALLERGIC TO SULFA. Frank Nayak MD cc: 350 TT: 08/16/2016 18:39:15 Confirmation # [id number] Dictation # [id number] mn
--- NOTE | 2016-08-17 20:44 | DS ---
The patient is a 70-year-old white male admitted to the hospital after a prostate biopsy developed se psis syndrome consistent with E. coli in the blood and the urine. A prostate biopsy done by Dr. Barrett for possible prostate cancer. The patient also was seen in consultation by Dr. Nayak and Dr. Luc evans and received IV antibiotics for multiple weeks before identification of the organism and se nsitivity could to be determined. The patient also had some elevated troponins while in the hospital and was seen in consultation by Dr. Alberto and taken to the catheter finisher and inspector and was found to have nonobstruct grey coronary artery disease. Eventually, the patient was ambulated, a Allen catheter was removed. Renetta carrington was able to be discharged home in improved condition to finish a course of Cipro. FINAL DISCHARGE DIAGNOSES: Escherichia coli sepsis secondary to prostate biopsy, nonobstructive espinoza nary artery disease, depression and benign prostatic hypertrophy. Avi Braden MD cc: 356 TT: 08/17/2016 20:43:42 [email or web address]
== END 2016-08-16 17:39 | disposition home or self-care (01) | DRG 871 ==
LOC: ED 22:04 → ERH 08-08 02:50 → 2RNO 08-08 03:37 → 2RSO 08-16 09:44
PROVIDERS: ADMIT Internal Medicine; ATTEND Internal Medicine
PROC: 4A023N7 Measurement of Cardiac Sampling and Pressure, Left Heart, Percutaneous Approach (ICD-10-PCS; principal; 2016-08-16)
PROC: B211YZZ Fluoroscopy of Multiple Coronary Arteries using Other Contrast (ICD-10-PCS; 2016-08-16)
PROC: B215YZZ Fluoroscopy of Left Heart using Other Contrast (ICD-10-PCS; 2016-08-16)
DX: A41.51 Sepsis due to Escherichia coli [E. coli] (principal); I21.4 Non-ST elevation (NSTEMI) myocardial infarction; R64 Cachexia; I42.9 Cardiomyopathy, unspecified; J44.9 Chronic obstructive pulmonary disease, unspecified; N39.0 Urinary tract infection, site not specified; I10 Essential (primary) hypertension; E78.5 Hyperlipidemia, unspecified; F39 Unspecified mood [affective] disorder; F41.9 Anxiety disorder, unspecified; I25.10 Atherosclerotic heart disease of native coronary artery without angina pectoris; K21.9 Gastro-esophageal reflux disease without esophagitis; N40.0 Benign prostatic hyperplasia without lower urinary tract symptoms; R31.9 Hematuria, unspecified; R32 Unspecified urinary incontinence; Z82.49 Family history of ischemic heart disease and other diseases of the circulatory system; Z85.118 Personal history of other malignant neoplasm of bronchus and lung; Z87.891 Personal history of nicotine dependence; Z88.2 Allergy status to sulfonamides; Z90.2 Acquired absence of lung [part of]; F32.89 Other specified depressive episodes; R65.20 Severe sepsis without septic shock; R35.0 Frequency of micturition; H26.9 Unspecified cataract; Z87.898 Personal history of other specified conditions; E66.3 Overweight; C61 Malignant neoplasm of prostate; Z68.25 Body mass index [BMI] 25.0-25.9, adult

== ENCOUNTER 2018-05-08 10:29 | Outpatient (CLI) | payer MEDICARE | END 2018-05-08 10:30 | disposition home or self-care (01) | LOC: RAD 10:30 ==